=== PATIENT | female | born 1995 | race Caucasian/White ===

== ENCOUNTER 2018-03-30 15:15 | Emergency (ER) | payer OTHER ==
--- NOTE | 2018-03-30 16:30 | ED Physician Documentation ---
PD HPI HEAD INJURY - Stated complaint Stated Complaint: HEAD INJURY - Chief complaint Chief Complaint: Neuro - History obtained from History obtained from: Patient - History of Present Illness Mechanism of head injury: Blow (About 4 days ago she was [place] hit her head on the wall. She did not lose consciousness but crumpled down and since then that has had persistent moderate headaches with dizziness and slight nausea. There is a possibility of , but she refused to do a test here.) Review of Systems Constitutional: reports: Reviewed and negative Throat: reports: Reviewed and negative Cardiac: reports: Reviewed and negative Respiratory: reports: Reviewed and negative PD PAST MEDICAL HISTORY - Past Medical History Past Medical History: No Cardiovascular: None Respiratory: None Neuro: None Endocrine/Autoimmune: None GI: None PHYSICAL CHEMIST: None : None HEENT: None Psych: None Musculoskeletal: None Derm: None - Past Surgical History Past Surgical History: No - Present Medications Home Medications: Ambulatory Orders Medication Instructions Recorded Confirmed No Known Home Medications 03/30/18 03/30/18 - Allergies Allergies/Adverse Reactions: Allergies Allergy/AdvReac Type Severity Reaction Status Date / Time No Known Drug Allergies Allergy Verified 03/30/18 15:26 - Social History Does the pt smoke?: Yes Smoking Status: Current every day smoker Does the pt drink ETOH?: Yes Does the pt have substance abuse?: No - Immunizations Immunizations are current?: Yes - POLST Patient has POLST: No PD ED PE NORMAL - Vitals Vital signs reviewed: Yes - General General: Alert and oriented X 3, No acute distress - HEENT HEENT: PERRL, EOMI - Neck Neck: Supple, no meningeal sign, No bony TTP - Neuro Neuro: Alert and oriented X 3, Normal speech - Psych Psych: Normal mood, Normal affect Results - Vitals Vitals: Vital Signs - 24 hr 03/30/18 03/30/18 15:21 16:18 Temperature 36 C L 36.4 C L Heart Rate 77 78 Respiratory 16 18 Rate Blood Pressure 129/82 H 128/82 H O2 Saturation 98 98 Oxygen O2 Source Room air - Rads (name of study) CT Head Radiology: EMP read contemporaneously (NAD) Departure - Departure Disposition: 01 Home, Self Care Clinical Impression: Concussion Qualifiers: Encounter type: initial encounter Loss of consciousness presence/duration: without LOC Qualified Code(s): S06.0X0A - Concussion without loss of consciousness, initial encounter Condition: Good Record reviewed to determine appropriate education?: Yes Instructions: ED Concussion Comments: Your blood pressure was elevated today on check into the emergency department. This does not mean that you have hypertension, it is a common phenomenon to come to the emergency department and have elevated blood pressure. I recommend that you see your primary care physician within the week to have it rechecked when you are feeling better.
--- NOTE | 2018-03-30 18:04 | CT Report ---
Reason: head inj Procedure Date: 03/30/2018 Accession Number: [id number] / [id number] Procedure: CT - Head W/O CPT Code: FULL RESULT: EXAM: CT HEAD EXAM DATE: 03/30/2018 05:36 PM. CLINICAL HISTORY: Head inj. COMPARISON: None. TECHNIQUE: Multiaxial CT images were obtained from the foramen magnum to the vertex. Reformats: Sagittal and coronal. IV contrast: None. In accordance with CT protocol optimization, one or more of the following dose reduction techniques were utilized for this exam: automated exposure control, adjustment of mA and/or KV based on patient size, or use of iterative reconstructive technique. FINDINGS: Parenchyma: No intraparenchymal hemorrhage. No evidence of mass, midline shift, or CT findings of infarction. Suárez-white differentiation is distinct. Extraaxial Spaces: Normal for age. No subdural or epidural collections identified. Ventricles: Normal in size and position. Sinuses and Orbits: Imaged paranasal sinuses, orbits, and mastoids show no significant abnormality. Bones: No evidence of fracture or calvarial defect. Other: None. IMPRESSION: No acute intracranial CT abnormality. RADIA
[2018-03-30 18:23] VITALS: BP 112/86
== END 2018-03-30 18:24 | disposition home or self-care (01) ==
LOC: ED 15:15
DX: S06.0X0A Concussion without loss of consciousness, initial encounter (principal); Y04.2XXA Assault by strike against or bumped into by another person, initial encounter; Y92.139 Unspecified place military base as the place of occurrence of the external cause; R03.0 Elevated blood-pressure reading, without diagnosis of hypertension; F17.200 Nicotine dependence, unspecified, uncomplicated
CPT/HCPCS: 70450; 99282; 99283

== ENCOUNTER 2018-04-06 14:12 | Emergency (ER) | payer OTHER ==
[2018-04-06 15:16] LABS: BILIRUBIN,URINE NEGATIVE (NEGATIVE); GLUCOSE, URINE (UA) NEGATIVE (NEGATIVE); KETONES,URINE (UA) NEGATIVE (NEGATIVE); LEUKOCYTE ESTERASE, URINE NEGATIVE (NEGATIVE); NITRITE,URINE NEGATIVE (NEGATIVE); OCCULT BLOOD,URINE NEGATIVE (NEGATIVE); PH,URINE 7.5 PH (5.0-7.5); PROTEIN,URINE NEGATIVE (NEGATIVE); UROBILINOGEN,URINE 0.2 (NORMAL) E.U./dL (NORMAL)
[2018-04-06 15:19] LABS: CLARITY,URINE CLEAR (CLEAR); HCG UR QUAL NEGATIVE
--- NOTE | 2018-04-06 15:38 | ED Physician Documentation ---
History of Present Illness - Stated complaint Stated Complaint: FEMALE /PX - Chief complaint Chief Complaint: UTI - History obtained from History obtained from: Patient - History of Present Illness Pain level max: 4 Pain level now: 3 Improved by: Nothing Worsened by: Urinating - Additonal information Additional information: 22-year-old female presents to the emergency department with dysuria, burning and frequency for the past week or so. Treated for a UTI in February but does not feel like it got better. Denies any vaginal bleeding, itching or discharge. She states that she is having abdominal cramping and nausea as well. Wonders if she may be . Review of Systems Constitutional: denies: Fever, Chills Cardiac: denies: Chest pain / pressure Respiratory: denies: Cough GI: reports: Nausea. denies: Vomiting, Diarrhea : reports: Dysuria, Frequency. denies: Now EGA Skin: denies: Rash Musculoskeletal: denies: Neck pain, Back pain Neurologic: denies: Headache PD PAST MEDICAL HISTORY - Past Medical History Cardiovascular: None Respiratory: None Neuro: None Endocrine/Autoimmune: None GI: None MATERIALS COORDINATOR: None : None HEENT: None Psych: None Musculoskeletal: None Derm: None - Past Surgical History Past Surgical History: No - Present Medications Home Medications: Ambulatory Orders Medication Instructions Recorded Confirmed Metronidazole [Flagyl] 500 mg PO BID #20 tablet 04/06/18 04/06/18 Ondansetron Odt [Zofran] 4 mg TL Q6H PRN #10 tablet 04/06/18 04/06/18 - Allergies Allergies/Adverse Reactions: Allergies Allergy/AdvReac Type Severity Reaction Status Date / Time No Known Drug Allergies Allergy Verified 04/06/18 21:48 - Social History Does the pt smoke?: Yes Smoking Status: Former smoker Does the pt drink ETOH?: Yes Does the pt have substance abuse?: No - Immunizations Immunizations are current?: Yes - POLST Patient has POLST: No PD ED PE NORMAL - Vitals Vital signs reviewed: Yes - General General: Alert and oriented X 3, No acute distress - HEENT HEENT: Moist mucous membranes - Neck Neck: Supple, no meningeal sign - Cardiac Cardiac: RRR, Strong equal pulses - Respiratory Respiratory: No respiratory distress, Clear bilaterally - Abdomen Abdomen: Soft, Non tender, Non distended - Female Female : University Tutor present (Ifeoma Paez RN), Other (Vaginal wall irritation with white thick discharge. Normal-appearing cervix. No cervical motion tenderness.) - Back Back: No CVA TTP, No spinal TTP - Derm Derm: Warm and dry, No rash - Extremities Extremities: No edema, No calf tenderness / cord - Neuro Neuro: Alert and oriented X 3 Results - Vitals Vitals: Vital Signs - 24 hr 04/06/18 04/06/18 14:16 17:29 Temperature 36.7 C Heart Rate 91 79 Respiratory 16 16 Rate Blood Pressure 130/82 H 112/66 O2 Saturation 100 100 Oxygen O2 Source Room air - Labs Labs: Microbiology 04/06/18 16:10 DREW Preparation - Final Other - Vaginal 04/06/18 16:10 Wet Prep - Final Vaginal Laboratory Tests 04/06/18 04/06/18 14:25 14:25 Urine Color YELLOW Urine Clarity CLEAR Urine pH 7.5 Ur Specific [place] 1.010 1.010 Urine Protein NEGATIVE Urine Glucose (UA) NEGATIVE Urine Ketones NEGATIVE Urine Occult Blood NEGATIVE Urine Nitrite NEGATIVE Urine Bilirubin NEGATIVE Urine Urobilinogen 0.2 (NORMAL) Ur Leukocyte Esterase NEGATIVE Ur Microscopic Review NOT INDICATED Urine Culture Comments NOT INDICATED Urine HCG, Qual NEGATIVE PD MEDICAL DECISION MAKING - ED course Complexity details: reviewed results, re-evaluated patient, considered differential, d/w patient ED course: 22-year-old female with what appears to be bacterial vaginitis on exam, will place on metronidazole for home and follow-up with her doctor. No evidence of UTI. No evidence of PID. Gonorrhea and Chlamydia testing were sent. Patient counseled regarding signs and symptoms for which I believe and urgent re- evaluation would be necessary. Patient with good understanding of and agreement to plan and is comfortable going home at this time This document was made in part using voice recognition software. While efforts are made to proofread this document, sound alike and grammatical errors may occur. She states that she has been with one partner for the past several months, no history of STDs Departure - Departure Disposition: Home, Self Care Clinical Impression: Bacterial vaginitis Condition: Good Instructions: ED Vaginosis Bacterial Follow-Up: CHARMAINE SALAZAR MD [Primary Care Provider] - Within 1 week Prescriptions: Metronidazole [Flagyl] 500 mg PO BID #20 tablet Ondansetron Odt [Zofran] 4 mg TL Q6H PRN #10 tablet PRN Reason: Nausea / Vomiting Comments: The cause of your symptoms is unclear today but may be related to bacterial vaginitis. Take all medications until gone. Return if you worsen. Forms: Activity restrictions Discharge Date/Time: 04/06/18 17:37
[2018-04-06] MEDS ORDERED: ONDANSETRON ODT 4 MG TABLET TL STA (17:20)
[2018-04-06] MEDS ORDERED: metroNIDAZOLE 250 MG TABLET PO STA (17:20)
[2018-04-06 17:31] VITALS: BP 112/66
== END 2018-04-06 17:37 | disposition home or self-care (01) ==
LOC: ED 14:12
DX: N76.0 Acute vaginitis (principal); B96.89 Other specified bacterial agents as the cause of diseases classified elsewhere; Z87.891 Personal history of nicotine dependence
CPT/HCPCS: 81003; 81025; 87210; 87220; 87491; 87591; 99283; A9270; Q0162; 81001; 87086

== ENCOUNTER 2018-04-06 21:40 | Emergency (ER) | payer OTHER ==
--- NOTE | 2018-04-06 22:02 | ED Physician Documentation ---
PD HPI MHE - Stated complaint Stated Complaint: SI - Chief complaint Chief Complaint: MHE - History obtained from History obtained from: Patient - History of Present Illness Primary symptom: Suicidal ideation, Depression (She has been feeling depressed and this is a somewhat long-term issue. 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 She likes her job and is hoping she does well with it. She does have a longer history of depression in the past. 1 of her friends asked if she was suicidal and the patient states she does have vague ideation of it at times and so answered yes. She did not think much of it and was at home watching a movie when her friend and came in and said they were going to escort her here for evaluation. She had not had any alcohol use. She denies any drug use.). No: Suicide attempt Timing - onset: Chronic Contributing factors: Substance abuse - ETOH (She states she had had excess alcohol use in the past but as given up alcohol for the last few months. She is in a support group at the [employer].) Similar symptoms before: Diagnosis (She does have a past history of depression she states she had a mild overdose of medication at age 14. She has not had any suicidal plans or attempts subsequently. She had at counseling back at that time but none recently.) Recently seen: Emergency Dept Review of Systems Ten Systems: 10 systems reviewed and negative PD PAST MEDICAL HISTORY - Past Medical History Cardiovascular: None Respiratory: None Neuro: None Endocrine/Autoimmune: None GI: None ORAL SURGERY PHYSICIAN: None : None HEENT: None Psych: Other Musculoskeletal: None Derm: None Other Past Medical History: Overdose when 14 years old - Past Surgical History Past Surgical History: No - Present Medications Home Medications: Ambulatory Orders Medication Instructions Recorded Confirmed Metronidazole [Flagyl] 500 mg PO BID #20 tablet 04/06/18 04/06/18 Ondansetron Odt [Zofran] 4 mg TL Q6H PRN #10 tablet 04/06/18 04/06/18 - Allergies Allergies/Adverse Reactions: Allergies Allergy/AdvReac Type Severity Reaction Status Date / Time No Known Drug Allergies Allergy Verified 04/06/18 21:48 - Social History Does the pt smoke?: Yes Smoking Status: Current every day smoker Does the pt drink ETOH?: Yes Does the pt have substance abuse?: No - Immunizations Immunizations are current?: Yes - POLST Patient has POLST: No PD ED PE NORMAL - Vitals Vital signs reviewed: Yes - General General: Alert and oriented X 3, No acute distress, Well developed/nourished, Other (She is pleasant, talkative and cooperative.) - Cardiac Cardiac: RRR, No murmur - Respiratory Respiratory: Clear bilaterally - Abdomen Abdomen: Soft, Non tender - Derm Derm: Normal color, Warm and dry - Neuro Neuro: Alert and oriented X 3, No motor deficit, Normal speech - Psych Psych: Normal mood, Normal affect Results - Vitals Vitals: Vital Signs - 24 hr 04/06/18 04/06/18 21:44 22:57 Temperature 36.0 C L 36.5 C Heart Rate 92 86 Respiratory 18 14 Rate Blood Pressure 134/91 H 123/76 O2 Saturation 100 100 Oxygen O2 Source Room air - Labs Labs: Laboratory Tests 04/06/18 04/06/18 04/06/18 22:16 22:16 22:22 WBC 7.8 RBC 4.66 Hgb 14.5 Hct 41.8 MCV 89.7 MCH 31.2 H MCHC 34.8 RDW 12.4 Plt Count 291 MPV 8.0 Neut # (Auto) 4.4 Lymph # (Auto) 2.6 [place] # (Auto) 0.7 Eos # (Auto) 0.0 Baso # (Auto) 0.0 Absolute Nucleated RBC 0.00 Nucleated RBC % 0.0 Sodium Potassium Chloride Carbon Dioxide Anion Gap BUN Creatinine Estimated GFR (MDRD) Glucose Calcium Ur Specific [place] 1.015 Urine HCG, Qual NEGATIVE Urine Opiates Screen NEGATIVE Ur Oxycodone Screen NEGATIVE Urine Methadone Screen NEGATIVE Ur Propoxyphene Screen NEGATIVE Ur Barbiturates Screen NEGATIVE Ur Tricyclics Screen NEGATIVE Ur Phencyclidine Scrn NEGATIVE Ur Amphetamine Screen NEGATIVE U Methamphetamines Scrn NEGATIVE U Benzodiazepines Scrn NEGATIVE Urine Cocaine Screen NEGATIVE U Cannabinoids Screen NEGATIVE Ethyl Alcohol 04/06/18 22:22 WBC RBC Hgb Hct MCV MCH MCHC RDW Plt Count MPV Neut # (Auto) Lymph # (Auto) [place] # (Auto) Eos # (Auto) Baso # (Auto) Absolute Nucleated RBC Nucleated RBC % Sodium 138 Potassium 3.6 Chloride 103 Carbon Dioxide 27 Anion Gap 8.0 BUN 13 Creatinine 0.7 Estimated GFR (MDRD) 106 Glucose 98 Calcium 9.4 Ur Specific [place] Urine HCG, Qual Urine Opiates Screen Ur Oxycodone Screen Urine Methadone Screen Ur Propoxyphene Screen Ur Barbiturates Screen Ur Tricyclics Screen Ur Phencyclidine Scrn Ur Amphetamine Screen U Methamphetamines Scrn U Benzodiazepines Scrn Urine Cocaine Screen U Cannabinoids Screen Ethyl Alcohol < 5.0 PD MEDICAL DECISION MAKING - ED course Complexity details: considered differential (She denies any current suicidal plan. She states her thoughts have been out of passive or vague suicidal ideation in the past and so I just answered honestly when asked earlier. She does not have any intention for self-harm. 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 She is willing to start counseling and would like to. I do not see any reason for holding her at this point. 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 and they will be staying with her overnight and help her start with counseling tomorrow.), d/w patient Departure - Departure Disposition: 01 Home, Self Care Clinical Impression: Passive suicidal ideations Adjustment disorder Qualifiers: Adjustment disorder type: with depressed mood Qualified Code(s): F43.21 - Adjustment disorder with depressed mood Condition: Stable Record reviewed to determine appropriate education?: Yes Instructions: ED Adjustment Disorder, ED Depression Follow-Up: BERTHA Moise [Provider Group] Comments: You have said you do not feel that you would be hurting herself and are forward looking with your career. You have promised not to hurt herself and to follow- up with counseling in the next couple of days. I agree that you do not seem at risk of self-harm and it seems reasonable for you to go home. Your command will likely want to have people check on you often and to help you with getting connected with counseling services in the next day or 2. They are looking out for your best interest with that. Regular activity is good and routine is good so regular diet and exercise and work. Follow-up with counseling in the next couple of days. Discharge Date/Time: 04/06/18 22:58
[2018-04-06 22:23] LABS: MUDS CUTOFF CONCENTRATIONS CUTOFF CONC BELOW:
[2018-04-06 22:28] LABS: HCG UR QUAL NEGATIVE
[2018-04-06 22:28] LABS: BASOPHILS % (AUTO) 0.3 %; EOSINOPHILS % (AUTO) 0.6 %; HGB - HEMOGLOBIN 14.5 g/dL (12.0-16.0); LYMPHOCYTES # (AUTO) 2.6 10^3/uL (1.5-3.5); MEAN CORPUSCULAR HEMOGLOBIN 31.2 pg (27.0-31.0); MEAN CORPUSCULAR HGB CONC 34.8 g/dL (32.0-36.0); MEAN CORPUSCULAR VOLUME 89.7 fL (81.0-99.0); MONOCYTES # (AUTO) 0.7 10^3/uL (0.0-1.0); MONOCYTES % (AUTO) 9.5 %; NEUTROPHILS # (AUTO) 4.4 10^3/uL (1.5-6.6); NEUTROPHILS % (AUTO) 56.6 %; PLT - PLATELET COUNT 291 10^3/uL (130-450); RED BLOOD COUNT 4.66 10^6/uL (4.20-5.40); RED CELL DISTRIBUTION WIDTH 12.4 % (12.0-15.0); WHITE BLOOD COUNT 7.8 x10^3/uL (4.8-10.8)
[2018-04-06 22:35] LABS: AMPHETAMINE SCREEN,URINE NEGATIVE (NEGATIVE); BENZODIAZEPINES SCREEN, URINE NEGATIVE (NEGATIVE); COCAINE SCREEN URINE NEGATIVE (NEGATIVE); METHADONE SCREEN, URINE NEGATIVE (NEGATIVE); METHAMPHETAMINES SCREEN, URINE NEGATIVE (NEGATIVE); OPIATE SCREEN, URINE NEGATIVE (NEGATIVE); OXYCODONE SCREEN, URINE NEGATIVE (NEGATIVE); PROPOXYPHENE SCREEN, URINE NEGATIVE (NEGATIVE); TRICYCLIC ANTIDEPRESSANT,URINE NEGATIVE (NEGATIVE)
[2018-04-06 22:35] LABS: BUN - BLOOD UREA NITROGEN 13 mg/dL (6-20); CALCIUM 9.4 mg/dL (8.5-10.3); CARBON DIOXIDE - CO2 27 mmol/L (21-32); CHLORIDE 103 mmol/L (101-111); CREATININE 0.7 mg/dL (0.4-1.0); GFR - MDRD 106 (>89); GLUCOSE 98 mg/dL (70-100); SODIUM 138 mmol/L (135-145)
[2018-04-06 22:58] VITALS: BP 123/76
== END 2018-04-06 22:58 | disposition home or self-care (01) ==
LOC: ED 21:40
DX: F43.21 Adjustment disorder with depressed mood (principal); R45.851 Suicidal ideations; F17.200 Nicotine dependence, unspecified, uncomplicated; N76.0 Acute vaginitis; B96.89 Other specified bacterial agents as the cause of diseases classified elsewhere
CPT/HCPCS: 36415; 80048; 80306; 80320; 81003; 81025; 85025; 87210; 87220; 87491; 87591; 99283; 99284; A9270; Q0162

== ENCOUNTER 2018-08-24 02:00 | Emergency (ER) | payer OTHER ==
[2018-08-24 02:37] LABS: BILIRUBIN,URINE NEGATIVE (NEGATIVE); GLUCOSE, URINE (UA) NEGATIVE (NEGATIVE); KETONES,URINE (UA) NEGATIVE (NEGATIVE); LEUKOCYTE ESTERASE, URINE TRACE (NEGATIVE); NITRITE,URINE POSITIVE (NEGATIVE); OCCULT BLOOD,URINE SMALL (NEGATIVE); PROTEIN,URINE NEGATIVE (NEGATIVE); UROBILINOGEN,URINE 0.2 (NORMAL) E.U./dL (NORMAL)
[2018-08-24 02:39] LABS: CLARITY,URINE SL. CLOUDY (CLEAR)
[2018-08-24 02:40] LABS: HCG UR QUAL NEGATIVE
[2018-08-24 02:49] LABS: BACTERIA,URINE Moderate /HPF (None Seen); RBC,URINE 0-5 /HPF (0-5); SQUAMOUS EPITHELIAL CELL,UR FEW Squamous (<= Few)
[2018-08-24] MEDS ORDERED: AZITHROMYCIN 250 MG TABLET PO STA (05:30)
[2018-08-24] MEDS ORDERED: LIDOCAINE 1% 2 ML VIAL MC ONE (05:31)
[2018-08-24] MEDS ORDERED: cefTRIAXone 250 MG VIAL IM STA (05:31)
--- NOTE | 2018-08-24 05:37 | ED Physician Documentation ---
PD HPI FEMALE - Stated complaint Stated Complaint: ABD PX/FEM /POSS EXPOSURE - Chief complaint Chief Complaint: General - History obtained from History obtained from: Patient - History of Present Illness Timing - onset: How many weeks ago (3) Timing - duration: Weeks (3) Timing - details: Gradual onset, Still present Associated symptoms: Pelvic pain, Other (discharge) Contributing factors: Sexually active, Exposed to STD Similar symptoms before: Diagnosis (STD) Recently seen: Not recently seen - Additional information Additional information: Previously well 22-year-old female who has had a foul-smelling vaginal discharge and pelvic pain for the past 3 weeks. She is come to the emergency department now seeking treatment. Review of Systems Constitutional: denies: Fever Eyes: denies: Decreased vision Ears: denies: Ear pain Nose: denies: Congestion Throat: denies: Sore throat Cardiac: denies: Chest pain / pressure, Palpitations Respiratory: denies: Dyspnea, Cough GI: reports: Abdominal Pain, Nausea. denies: Vomiting : reports: Discharge. denies: Dysuria, Frequency Skin: denies: Rash Musculoskeletal: denies: Neck pain, Back pain, Extremity pain PD PAST MEDICAL HISTORY - Past Medical History Cardiovascular: None Respiratory: None Neuro: None Endocrine/Autoimmune: None GI: None BEHAVIORAL HEALTH DIRECTOR: None : None HEENT: None Psych: Other Musculoskeletal: None Derm: None - Past Surgical History Past Surgical History: No - Present Medications Home Medications: Ambulatory Orders Medication Instructions Recorded Confirmed Metronidazole [Flagyl] 500 mg PO BID #20 tablet 04/06/18 04/06/18 Ondansetron Odt [Zofran] 4 mg TL Q6H PRN #10 tablet 04/06/18 04/06/18 - Allergies Allergies/Adverse Reactions: Allergies Allergy/AdvReac Type Severity Reaction Status Date / Time No Known Drug Allergies Allergy Verified 04/06/18 21:48 - Social History Does the pt smoke?: Yes Smoking Status: Current every day smoker Does the pt drink ETOH?: Yes Does the pt have substance abuse?: No - Immunizations Immunizations are current?: Yes - POLST Patient has POLST: No PD ED PE NORMAL - Vitals Vital signs reviewed: Yes (hypertensive ) - General General: Alert and oriented X 3, No acute distress, Well developed/nourished - HEENT HEENT: Atraumatic, PERRL, EOMI - Neck Neck: Supple, no meningeal sign - Respiratory Respiratory: No respiratory distress - Female Female : Hat Cleaner present (julia), Other (yellow white discharge is present with cervical mucopus. The bimanual exam is postitive for cervical motion tenderness. ) - Derm Derm: Normal color, Warm and dry, No rash - Extremities Extremities: No deformity, No edema - Neuro Neuro: Alert and oriented X 3, tire layer 2-12 intact, No motor deficit, No sensory deficit, Normal speech Eye Opening: Spontaneous Verbal: Oriented - Psych Psych: Normal mood, Normal affect Results - Vitals Vitals: Vital Signs - 24 hr 08/24/18 02:06 Temperature 36.6 C Heart Rate 90 Respiratory 18 Rate Blood Pressure 133/81 H O2 Saturation 99 Oxygen O2 Source Room air - Labs Labs: Laboratory Tests 08/24/18 00:23 Urine Color YELLOW Urine Clarity SL. CLOUDY Urine pH 6.0 Ur Specific [place] 1.020 Urine Protein NEGATIVE Urine Glucose (UA) NEGATIVE Urine Ketones NEGATIVE Urine Occult Blood SMALL H Urine Nitrite POSITIVE H Urine Bilirubin NEGATIVE Urine Urobilinogen 0.2 (NORMAL) Ur Leukocyte Esterase TRACE H Urine RBC 0-5 Urine WBC 0-3 Ur Squamous Epith Cells FEW Squamous Urine Bacteria Moderate H Ur Microscopic Review INDICATED Urine Culture Comments INDICATED Urine HCG, Qual NEGATIVE PD MEDICAL DECISION MAKING - ED course Complexity details: considered differential, d/w patient ED course: 22-year-old female with exposure to STD appears to have discharge and cervical motion tenderness consistent with STD and she is treated with Rocephin and Zithromax. Departure - Departure Disposition: 01 Home, Self Care Clinical Impression: STD (female) Condition: Stable Instructions: ED VD Cervicitis Treated Follow-Up: CHARMAINE SALAZAR MD [Primary Care Provider] - Forms: Activity restrictions
[2018-08-24 06:11] VITALS: BP 122/84
== END 2018-08-24 06:16 | disposition home or self-care (01) ==
LOC: ED 02:00
DX: A64 Unspecified sexually transmitted disease (principal); F17.200 Nicotine dependence, unspecified, uncomplicated
CPT/HCPCS: 81001; 81025; 87086; 87181; 96372; 99282; 99283; A9270; 81003

== ENCOUNTER 2018-09-13 13:19 | Emergency (ER) | payer OTHER ==
[2018-09-13 14:25] LABS: BILIRUBIN,URINE NEGATIVE (NEGATIVE); GLUCOSE, URINE (UA) NEGATIVE (NEGATIVE); KETONES,URINE (UA) NEGATIVE (NEGATIVE); LEUKOCYTE ESTERASE, URINE NEGATIVE (NEGATIVE); NITRITE,URINE NEGATIVE (NEGATIVE); OCCULT BLOOD,URINE SMALL (NEGATIVE); PROTEIN,URINE NEGATIVE (NEGATIVE); UROBILINOGEN,URINE 0.2 (NORMAL) E.U./dL (NORMAL)
[2018-09-13 14:27] LABS: CLARITY,URINE HAZY (CLEAR); HCG UR QUAL NEGATIVE
[2018-09-13 14:43] LABS: BACTERIA,URINE Few /HPF (None Seen); SQUAMOUS EPITHELIAL CELL,UR MANY Squamous (<= Few)
[2018-09-13] MEDS ORDERED: ACETAMINOPHEN 325 MG TABLET PO STA (15:32)
[2018-09-13] MEDS ORDERED: metroNIDAZOLE 250 MG TABLET PO STA (15:32)
--- NOTE | 2018-09-13 15:36 | ED Physician Documentation ---
PD HPI FEMALE - Stated complaint Stated Complaint: FEMALE - Chief complaint Chief Complaint: General - History obtained from History obtained from: Patient - History of Present Illness Timing - onset: How many days ago (few days of worsening vaginal burning feeling and pain, with pelvic cramping.) Timing - duration: Days Timing - details: Gradual onset, Waxing and waning Associated symptoms: Pelvic pain, Vaginal discharge (mild), Dysuria. No: Fever, Vaginal bleeding, Genital sore/lesion, Urinary frequency Contributing factors: Sexually active. No: Exposed to STD (has recent new sexual partner, but not suspicious for STDs. Had same symptoms for past month and seen about 3 weeks ago with pelvic exam appearance like chlamydia/etd. So was given IM Rocephin and PO Zithromax 1 g. Patient says symptoms improved but not gone, and then back again the past few days and worse.) Recently seen: Emergency Dept Review of Systems Constitutional: denies: Fever, Chills, Myalgias, Fatigue Nose: denies: Rhinorrhea / runny nose, Congestion Throat: denies: Sore throat Respiratory: denies: Cough GI: reports: Abdominal Pain. denies: Nausea, Vomiting, Diarrhea : reports: Dysuria, Discharge. 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 : None HEENT: None Psych: None Musculoskeletal: None Derm: None - Past Surgical History Past Surgical History: No - Present Medications Home Medications: Ambulatory Orders Medication Instructions Recorded Confirmed Metronidazole [Flagyl] 500 mg PO BID #20 tablet 04/06/18 04/06/18 Ondansetron Odt [Zofran] 4 mg TL Q6H PRN #10 tablet 04/06/18 04/06/18 Fluconazole [Diflucan] 150 mg PO ONCE #3 tablet 09/13/18 Metronidazole [Flagyl] 500 mg PO BID #14 tablet 09/13/18 Naproxen 375 mg PO BID #20 tablet 09/13/18 Tramadol HCl 50 mg PO Q6H PRN #15 tablet 09/13/18 - Allergies Allergies/Adverse Reactions: Allergies Allergy/AdvReac Type Severity Reaction Status Date / Time No Known Drug Allergies Allergy Verified 09/13/18 13:34 - Social History Does the pt smoke?: Yes Smoking Status: Current some day smoker Does the pt drink ETOH?: Yes ETOH Use: Wine, Beer, Liquor Does the pt have substance abuse?: No - Immunizations Immunizations are current?: Yes - POLST Patient has POLST: No PD ED PE NORMAL - Vitals Vital signs reviewed: Yes - General General: Alert and oriented X 3, No acute distress, Well developed/nourished - HEENT HEENT: Pharynx benign - Neck Neck: Supple, no meningeal sign, No adenopathy - Cardiac Cardiac: RRR, No murmur - Respiratory Respiratory: Clear bilaterally - Abdomen Abdomen: Normal bowel sounds, Soft, Non distended, No organomegaly, Other - Female Female : Loose Hand Packer present, Other (external normal. Inner labia with some re dness and tenderness of tissue. Introitus with tenderness and redness. The vault with white milky discharge to rather clumpy white. ) - Rectal Rectal: Deferred - Back Back: No CVA TTP - Derm Derm: Normal color, Warm and dry Results - Vitals Vitals: Vital Signs - 24 hr 09/13/18 09/13/18 13:32 15:53 Temperature 37 C Heart Rate 90 75 Respiratory 18 18 Rate Blood Pressure 110/74 124/80 O2 Saturation 100 100 Oxygen O2 Source Room air - Labs Labs: Microbiology 09/13/18 15:15 Wet Prep - Final Vaginal Laboratory Tests 09/13/18 09/13/18 14:15 15:25 Urine Color YELLOW Urine Clarity HAZY Urine pH 6.0 Ur Specific [place] 1.020 Urine Protein NEGATIVE Urine Glucose (UA) NEGATIVE Urine Ketones NEGATIVE Urine Occult Blood SMALL H Urine Nitrite NEGATIVE Urine Bilirubin NEGATIVE Urine Urobilinogen 0.2 (NORMAL) Ur Leukocyte Esterase NEGATIVE Urine RBC 6-10 H Urine WBC 4-5 Ur Squamous Epith Cells MANY Squamous H Urine Bacteria Few Ur Microscopic Review INDICATED Urine Culture Comments NOT INDICATED Urine HCG, Qual NEGATIVE Chlam trachomat DNA PCR NEGATIVE N.gonorrhoeae DNA (PCR) NEGATIVE T. vaginalis (PCR) NEGATIVE PD MEDICAL DECISION MAKING - ED course Complexity details: reviewed old records, reviewed results (recent Rx for STDs with rocphine and zithroamx. Having symptoms again and did not really fully cleared. Will treat for BV/yeast, c/w the appearance. Culture results will help guide. I could not find culture/STD screen result from prior ED visit.), considered differential, d/w patient ED course: BV and STD screen results return after discharge (takes hours for results) - showing negative results, but the wet prep shows clue cells, and the exam was very c/w BV, so will count the wet prep as the true positive and BV screen as false negative, based on clinical correlation. Departure - Departure Disposition: 01 Home, Self Care Clinical Impression: Vaginal pain Vaginitis Qualifiers: Chronicity: acute Qualified Code(s): N76.0 - Acute vaginitis Condition: Stable Record reviewed to determine appropriate education?: Yes Instructions: ED Vaginosis Bacterial, ED Vaginal Infec Fungal Karina Follow-Up: CHARMAINE SALAZAR MD [Primary Care Provider] - Prescriptions: Fluconazole [Diflucan] 150 mg PO ONCE #3 tablet Metronidazole [Flagyl] 500 mg PO BID #14 tablet Naproxen 375 mg PO BID #20 tablet Tramadol HCl 50 mg PO Q6H PRN #15 tablet PRN Reason: Pain Comments: Stay well-hydrated. The appearance on pelvic exam is likely to be a mix of bacterial and yeast vaginitis. The culture test will result in a day or so and tell us if there is more to it. We will call you if the treatment needs to be amended. At this point would treated with an antifungal and antibiotic as directed. You can use naproxen anti-inflammatory twice daily for the week. Add Tylenol or tramadol if needed for pains. Recheck if not improved over the next several days to week. Forms: Activity restrictions Discharge Date/Time: 09/13/18 15:54
[2018-09-13] MEDS: IBUPROFEN 600 MG TABLET PO STA (15:48)
[2018-09-13 15:53] VITALS: BP 124/80
[2018-09-13 22:10] LABS: TRICHOMONAS VAGINALIS DNA NEGATIVE (NEGATIVE)
[2018-09-13 23:50] LABS: CANDIDA GROUP DNA NEGATIVE (NEGATIVE); CANDIDA KRUSEI DNA NEGATIVE (NEGATIVE); TRICHOMONAS VAGINALIS DNA NEGATIVE (NEGATIVE)
== END 2018-09-13 15:54 | disposition home or self-care (01) ==
LOC: ED 13:19
DX: N76.0 Acute vaginitis (principal); F17.200 Nicotine dependence, unspecified, uncomplicated
CPT/HCPCS: 81001; 81025; 87210; 87481; 87491; 87591; 87661; 87801; 99283; 99284; A9270; 81003; 87086

== ENCOUNTER 2018-11-08 14:25 | Emergency (ER) | payer OTHER ==
--- NOTE | 2018-11-08 15:00 | ED Physician Documentation ---
PD HPI FEMALE - Stated complaint Stated Complaint: FEM -7 WKS PG - Chief complaint Chief Complaint: Abd Pain - History obtained from History obtained from: Patient - History of Present Illness Timing - onset: How many weeks ago (has had some lower abd cramping for 3 weeks. Had home test positive and then confirmed test at [facility]. Having increased cramping the past couple days. No vaginal bleeding.) Timing - duration: Weeks Timing - details: Gradual onset, Waxing and waning Associated symptoms: Dysuria. 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 denies: Vomiting, Diarrhea : reports: Dysuria. 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 : None HEENT: None Psych: None Musculoskeletal: None Derm: None - Past Surgical History Past Surgical History: No - Present Medications Home Medications: Ambulatory Orders Medication Instructions Recorded Confirmed Metronidazole [Flagyl] 500 mg PO BID #20 tablet 04/06/18 04/06/18 Ondansetron Odt [Zofran] 4 mg TL Q6H PRN #10 tablet 04/06/18 04/06/18 Fluconazole [Diflucan] 150 mg PO ONCE #3 tablet 09/13/18 Metronidazole [Flagyl] 500 mg PO BID #14 tablet 09/13/18 Naproxen 375 mg PO BID #20 tablet 09/13/18 Tramadol HCl 50 mg PO Q6H PRN #15 tablet 09/13/18 Cephalexin [Keflex] 500 mg PO TID #20 capsule 11/08/18 - Allergies Allergies/Adverse Reactions: Allergies Allergy/AdvReac Type Severity Reaction Status Date / Time No Known Drug Allergies Allergy Verified 09/13/18 13:34 - Social History Does the pt smoke?: Yes Smoking Status: Current some day smoker Does the pt drink ETOH?: Yes Does the pt have substance abuse?: No - Immunizations Immunizations are current?: Yes - POLST Patient has POLST: No PD ED PE NORMAL - Vitals Vital signs reviewed: Yes - General General: Alert and oriented X 3, No acute distress, Well developed/nourished - Neck Neck: Supple, no meningeal sign, No adenopathy - Cardiac Cardiac: RRR, No murmur - Respiratory Respiratory: Clear bilaterally - Abdomen Abdomen: Normal bowel sounds, Soft, Non tender, Non distended, No organomegaly - Female Female : Deferred - Rectal Rectal: Deferred - Back Back: No CVA TTP - Derm Derm: Normal color, Warm and dry Results - Vitals Vitals: Vital Signs - 24 hr 11/08/18 11/08/18 14:29 17:52 Temperature 36.7 C 36.6 C Heart Rate 92 86 Respiratory 16 18 Rate Blood Pressure 110/64 111/58 L O2 Saturation 100 100 Oxygen O2 Source Room air - Labs Labs: Laboratory Tests 11/08/18 11/08/18 14:50 15:44 HCG, Quant 43315.00 Urine Color YELLOW Urine Clarity CLEAR Urine pH 6.0 Ur Specific [place] 1.010 Urine Protein NEGATIVE Urine Glucose (UA) NEGATIVE Urine Ketones NEGATIVE Urine Occult Blood TRACE-INTA Urine Nitrite POSITIVE H Urine Bilirubin NEGATIVE Urine Urobilinogen 0.2 (NORMAL) Ur Leukocyte Esterase TRACE H Urine RBC 0-5 Urine WBC 6-10 H Ur Squamous Epith Cells RARE Squamous Urine Bacteria Many H Ur Microscopic Review INDICATED Urine Culture Comments INDICATED - Rads (name of study) OB U/S Radiology: Prelim report reviewed (normal IUP. FHR slightly slow. Ovaries normal. ), See rad report PD MEDICAL DECISION MAKING - ED course Complexity details: reviewed results (normal IUP with FHR slightly slow. ), considered differential, d/w patient Departure - Departure Disposition: 01 Home, Self Care Clinical Impression: Pelvic cramping in antepartum period UTI (urinary tract infection) Qualifiers: Urinary tract infection type: acute cystitis Hematuria presence: without hematuria Qualified Code(s): N30.00 - Acute cystitis without hematuria Qualifiers: Weeks of gestation: less than 8 weeks Qualified Code(s): Z3A.01 - Less than 8 weeks gestation of Condition: Stable Record reviewed to determine appropriate education?: Yes Instructions: ED UTI Cystitis Female Follow-Up: CHARMAINE SALAZAR MD [Primary Care Provider] - Prescriptions: Cephalexin [Keflex] 500 mg PO TID #20 capsule Comments: You do have a bladder infection and this may account for a lot of your symptoms. Use cephalexin 3 times a day for a week as directed. Drink lots of fluids. Tylenol as needed for pains or cramps. This early in , you can still use ibuprofen to 3 times a day if needed as well. You do have early in the correct position in the uterus with visible heart beat. No problems seen in the ovaries. The ultrasound showed dates to be 6 weeks at this time. Follow-up with your primary care in the clinic for recheck in the next several days. Stay well-hydrated. Discharge Date/Time: 11/08/18 17:52
[2018-11-08 15:10] LABS: BILIRUBIN,URINE NEGATIVE (NEGATIVE); GLUCOSE, URINE (UA) NEGATIVE (NEGATIVE); KETONES,URINE (UA) NEGATIVE (NEGATIVE); LEUKOCYTE ESTERASE, URINE TRACE (NEGATIVE); NITRITE,URINE POSITIVE (NEGATIVE); OCCULT BLOOD,URINE TRACE-INTA (NEGATIVE); PROTEIN,URINE NEGATIVE (NEGATIVE); UROBILINOGEN,URINE 0.2 (NORMAL) E.U./dL (NORMAL)
[2018-11-08 15:22] LABS: BACTERIA,URINE Many /HPF (None Seen); CLARITY,URINE CLEAR (CLEAR); RBC,URINE 0-5 /HPF (0-5); SQUAMOUS EPITHELIAL CELL,UR RARE Squamous (<= Few)
[2018-11-08] MEDS ORDERED: cephALEXin 250 MG CAPSULE PO STA (15:33)
--- NOTE | 2018-11-08 17:38 | Ultrasound Report ---
Reason: lower abd cramping; 7 wks EGA Procedure Date: 11/08/2018 Accession Number: [id number] / [id number] Procedure: US - OB First Trimester CPT Code: FULL RESULT: EXAM: FIRST TRIMESTER OBSTETRIC ULTRASOUND (Less than 11 weeks) EXAM DATE: 11/08/2018 05:25 PM. CLINICAL HISTORY: Lower abdominal cramping; 7 wks EGA. COMPARISONS: None. TECHNIQUE: Transabdominal and transvaginal ultrasound examination with static image documentation. CLINICAL DATES: EGA 6 weeks 3 days with TARIK 07/01/2019 based on LMP. ASSESSMENT: Gestational Sac: Single intrauterine. Mean gestational sac diameter: 14 mm = 6 weeks 2 days. Embryo: CRL (crown-rump length) 4 mm = 6 weeks 0 days. Cardiac activity: 102 beats per minute. Yolk sac: 3 mm. Other: There is a perigestational fluid collection that measures 2.0 x 1.8 cm. MATERNAL STRUCTURES: Uterus: Retroverted. Unremarkable. Cervix: Closed. Right Ovary/Adnexa: The ovary measures 2.7 x 1.8 x 1.9 cm, volume 5 cc. Unremarkable. Left Ovary/Adnexa: The ovary measures 4.1 x 1.5 x 1.9 cm, volume 6 cc. There is a corpus luteum. Free Fluid: None. Other: None. IMPRESSION: Single intrauterine at EGA 6 weeks 0 days with TARIK 07/04/2019 based on crown-rump length. Low heart rate may be due to early gestational age. There is a perigestational collection. RADIA
[2018-11-08 17:53] VITALS: BP 111/58
== END 2018-11-08 17:52 | disposition home or self-care (01) ==
LOC: ED 14:25
DX: O99.89 Other specified diseases and conditions complicating pregnancy, childbirth and the puerperium (principal); O23.91 Unspecified genitourinary tract infection in pregnancy, first trimester; R10.2 Pelvic and perineal pain; F17.200 Nicotine dependence, unspecified, uncomplicated; Z3A.01 Less than 8 weeks gestation of pregnancy
CPT/HCPCS: 76801; 76817; 81001; 84702; 87086; 87181; 99284; A9270; 81003; 87661; 87801

== ENCOUNTER 2019-05-05 08:26 | Outpatient (CLI) | payer OTHER ==
[2019-05-05 08:47] VITALS: BP 111/77
[2019-05-05 09:40] LABS: RUPTURE OF MEMBRANES PLUS NEGATIVE (NEGATIVE)
--- NOTE | 2019-05-20 12:51 | PROVIDER PROGRESS NOTE ---
- HPI Chief Complaint: Leakage of vaginal fluid Current : Current EDU 07/01/19 Gestation 31 Weeks and 6 Days 1 Para 0 Vital Signs Temperature 36.9 C 05/05/19 08:45 Heart Rate 112 H 05/05/19 08:45 Respiratory Rate 18 05/05/19 08:45 Blood Pressure 111/77 05/05/19 08:45 O2 Saturation 100 05/05/19 08:45 Temperature 36.9 C 05/05/19 08:45 Heart Rate 112 H 05/05/19 08:45 Respiratory Rate 18 05/05/19 08:45 Blood Pressure 111/77 05/05/19 08:45 O2 Saturation 100 05/05/19 08:45 - Exam Negative Pool, nitrazine, fern. - Procedures Diagnosis/Indication for NST: Other (RO ROM) NST Procedure: NST Procedure Start Date 05/05/19 Start Time 08:40 Stop Time 09:20 Vibroacoustic Stimulation Used No Patient States Movement Yes Findings: Negative Rom+ - Plan Plan: reviewed SROM, FM, Contractions
== END 2019-05-05 09:56 | disposition home or self-care (01) ==
LOC: WFO 08:26 → FBP 08:48 → WFO 09:56
PROVIDERS: ATTEND Obstetrics & Gynecology
DX: O99.89 Other specified diseases and conditions complicating pregnancy, childbirth and the puerperium (principal); N89.8 Other specified noninflammatory disorders of vagina; Z3A.31 31 weeks gestation of pregnancy
CPT/HCPCS: 84112; 99213

== ENCOUNTER 2019-06-03 07:00 | Outpatient (CLI) | payer OTHER ==
[2019-06-03 19:51] LABS: CANDIDA GROUP DNA POSITIVE (NEGATIVE); CANDIDA KRUSEI DNA NEGATIVE (NEGATIVE); TRICHOMONAS VAGINALIS DNA NEGATIVE (NEGATIVE)
[2019-06-03 20:40] LABS: TRICHOMONAS VAGINALIS DNA NEGATIVE (NEGATIVE)
== END 2019-06-03 23:59 | disposition home or self-care (01) ==
LOC: LAB.R 07:00
PROVIDERS: ATTEND Nurse Practitioner Obstetrics & Gynecology
DX: Z36.85 Encounter for antenatal screening for Streptococcus B (principal); Z67.91 Unspecified blood type, Rh negative; O23.599 Infection of other part of genital tract in pregnancy, unspecified trimester; Z3A.00 Weeks of gestation of pregnancy not specified
CPT/HCPCS: 36415; 81599; 86850; 86886; 87491; 87591; 87661; 87797; 87801

== ENCOUNTER 2019-06-03 08:00 | Outpatient (CLI) | payer OTHER | END 2019-06-03 23:59 | disposition home or self-care (01) | LOC: LAB.WCP 08:00 | PROVIDERS: ATTEND Nurse Practitioner Obstetrics & Gynecology | DX: Z67.91 Unspecified blood type, Rh negative (principal) | CPT/HCPCS: 36415; 81599; 86886 ==

== ENCOUNTER 2019-07-05 04:02 | Observation (INO) | payer OTHER ==
[2019-07-05] MEDS ORDERED: LACTATED RINGERS 1,000 ML IV ONE (05:54)
[2019-07-05] MEDS ORDERED: PROMETHAZINE 25 MG/1 ML VIAL IM STA (06:41)
[2019-07-05] MEDS ORDERED: MORPHINE 10 MG/ML VIAL IM STA (06:41)
[2019-07-05] MEDS ORDERED: fentaNYL 100 MCG/2 ML VIAL IVP PRN (11:20)
[2019-07-05] MEDS ORDERED: METOCLOPRAMIDE 10 MG/2 ML VIAL IVP PRN (11:20)
[2019-07-05] MEDS ORDERED: SODIUM CHLORIDE FLUSH 0.9% 10 ML SYRINGE IVP PRN (11:20)
[2019-07-05] MEDS ORDERED: ONDANSETRON 4 MG/2 ML VIAL IVP PRN (11:20)
[2019-07-05] MEDS ORDERED: miSOPROStoL 200 MCG TABLET PR PRN (11:24)
[2019-07-05] MEDS ORDERED: LIDOCAINE-MPF 1% 30 ML VIAL ID PRN (11:24)
[2019-07-05] MEDS ORDERED: MINERAL OIL LIGHT 10 ML MC ONE (11:24)
[2019-07-05] MEDS ORDERED: METHYLERGONOVINE 0.2 MG/ML VIAL IM PRN (11:24)
[2019-07-05] MEDS ORDERED: TRANEXAMIC ACID 1,000 MG in SODIUM CHLORIDE 0.9% 100ML 100 ML IV PRN (11:24)
[2019-07-05] MEDS ORDERED: CARBOPROST TROMETHAMINE 250 MCG/ML AMP IM PRN (11:24)
[2019-07-05] MEDS ORDERED: OXYTOCIN/SODIUM CHLORIDE 500 ML IV PRN (11:24)
[2019-07-05] MEDS ORDERED: LACTATED RINGERS 1,000 ML IV SCH (12:00)
[2019-07-05] MEDS ORDERED: ACETAMINOPHEN 325 MG TABLET PO SCH (12:00)
[2019-07-05 12:04] VITALS: BP 134/80
--- NOTE | 2019-07-05 16:32 | Labor Flowsheet ---
Labor Flowsheet Datetime Report Generated by CPN: 07/05/2019 16:31 Datetime: 07/05/2019 16:14 VAGINAL EXAM Dilatation (cm): 1.0 Effacement (%): 80 Station: 0 Exam by: Peggy Rosado CNM Vaginal Bleeding: Normal Show Cervix, Consistency: Moderate Cervix, Position: Posterior Vaginal Exam Comments: Minimal change Datetime: 07/05/2019 16:11 COMMUNICATION Communication: RN at Bedside; Provider at Bedside Provider Notified (Name): Peggy Rosado CNM Datetime: 07/05/2019 16:04 I/O Interventions: Up to BR Datetime: 07/05/2019 15:35 Patient Position/Activity: Knee Chest Patient Care Comments: Peanut ball under chest Datetime: 07/05/2019 15:30 UTERINE ACTIVITY Monitor Mode: Palpation Frequency (min): 1-3 Quality: Moderate Duration (sec): 60-120 Resting Tone (Palpate): Relaxed Contraction Comments: Knee chest position. Rosa not capturing contractions ASSESSMENT A Monitor Mode: Telemetry FHR Baseline Rate : 135 Variability: Minimal - Undetectable to <=5 bpm Accelerations: None Decelerations: None Category: Category II PATIENT CARE Oxygen Method: Room Air Datetime: 07/05/2019 15:26 Communication Comments: See her last patient in the office, will be into assess as soon as she is d one. Datetime: 07/05/2019 15:00 Pattern: Normal: <= 5 Contractions in 10 Minutes Datetime: 07/05/2019 14:56 VITAL SIGNS NBP Sys/Crystal/Mean (mmHg): 143 : 78 : 93 Pulse: 82 LaborFlag: Labor Datetime: 07/05/2019 14:55 Monitor Interventions for UA: Rosa Adjusted Monitor Interventions for FHR: Ultrasound Adjusted Datetime: 07/05/2019 13:53 Stage of : Labor Respirations: 18 Temperature (C): 36.5 Temperature Route: Oral Datetime: 07/05/2019 11:46 PAIN Pain Relief Measures: Comfort Measures Pain Assessment Comments: Getting in the [facility]. EFM off, will dopple every 30-60 minutes and PRN Hygiene: Oral Care Datetime: 07/05/2019 11:34 Comments: Transfer to room 2101
[2019-07-05] MEDS ORDERED: SODIUM CHLORIDE FLUSH 0.9% 10 ML SYRINGE IVP SCH (17:00)
--- NOTE | 2019-07-05 18:03 | PROVIDER PROGRESS NOTE ---
- HPI Chief Complaint: Labor Check Current : Current EDU 07/01/19 Gestation 40 Weeks and 4 Days 1 Para 1 Vital Signs Temperature 37 C 07/05/19 04:30 Temperature 37.4 C 07/05/19 10:56 Heart Rate 86 07/05/19 10:56 Respiratory Rate 20 07/05/19 10:56 Blood Pressure 134/80 H 07/05/19 10:56 O2 Saturation 99 07/05/19 10:56 - Exam S: Giovanna is a 23yo who presented to triage this morning at 40.4wks for rule out labor. She reports having strong contractions since 0300 and had not slept all night. She is tearful, anxious, and rates her contractions at 7-9/10. Throughout OBS during day pt reports no relief from position changes, bath/shower or morphine&phenergan injection. O: 23yo care uncomplicated and adequate Initial U/S: 12/03/2018 @ 9.4wks gestation c/w LMP dating. TARIK by LMP. A NEG- Passive Anti-D antibody POSITIVE- titers redrawn and "minimal" Rubella immune Hep B neg, Hep C neg VZV immune HIV non-reactive; GC/CT neg Genetic testing: declined FAS: 02/10/2020 with the exception of mild bilateral renal pyelectasis. Anterior placenta, no previa. 3VC. Size c/w dating. Glucola 88 TDAP 04/12/2019 GBS & GC/CT: GBS pos; GC/Ct neg HSV: denies MOD: Anticipate ; Plans epidural for pain management; Expecting a girl - Jennifer. : Jose. 0600 FHTs in the 120s-130s, moderate variability, accels, no decels. Uterine contractions palpate moderate, relax fully in between and occur every 1- 4mins 0600 Vertex by BSUS. SVE is .5/80%/very posterior/mod/0 station Rechecked at approx 1830 and unchanged. Pt anxious and tearful about going home. Offered vega balloon elective induction. A: FHT Cat I Uterine contractions strong and regular Not in active labor Anxious patient, struggling with coping with early labor P: Pt offered to stay or to go home, chose to go home. Risks/benefits discussed and all questions answered. Discharged to home with instructions and education on when to return and warning signs. - Procedures NST Procedure: NST Procedure Start Time 08:40 Stop Time 09:20 Service Date of procedure: 07/05/19
[2019-07-05] MEDS ORDERED: ROPIVACAINE 0.2% 200 MG/100 ML BAG EP ONE (18:50)
[2019-07-05] MEDS ORDERED: OXYTOCIN/SODIUM CHLORIDE 500 ML IV ONE (19:50)
[2019-07-06] MEDS ORDERED: SERTRALINE 25 MG TABLET PO SCH (09:00)
== END 2019-07-05 16:55 | disposition home or self-care (01) ==
LOC: WFO 04:02 → FBP 04:05 → WFO 11:19 → FBP 11:20
PROVIDERS: ADMIT Advanced Practice Midwife; ATTEND Advanced Practice Midwife
DX: Z34.93 Encounter for supervision of normal pregnancy, unspecified, third trimester (principal)
CPT/HCPCS: 85025; 99214

== ENCOUNTER 2019-07-05 18:28 | Inpatient (IN) | payer OTHER ==
[2019-07-05] MEDS ORDERED: LACTATED RINGERS 1,000 ML IV ONE (18:39)
[2019-07-05] MEDS ORDERED: OXYTOCIN/SODIUM CHLORIDE 500 ML IV PRN (18:41)
[2019-07-05] MEDS ORDERED: SODIUM CHLORIDE FLUSH 0.9% 10 ML SYRINGE IVP PRN (18:41)
[2019-07-05] MEDS ORDERED: fentaNYL 100 MCG/2 ML VIAL IVP PRN (18:41)
[2019-07-05] MEDS: LACTATED RINGERS 1,000 ML IV SCH ×2 (18:50→23:15)
[2019-07-05 18:53] LABS: BASOPHILS % (AUTO) 0.2 %; EOSINOPHILS % (AUTO) 0.1 %; HGB - HEMOGLOBIN 14.2 g/dL (12.0-16.0); LYMPHOCYTES # (AUTO) 1.4 10^3/uL (1.5-3.5); MEAN CORPUSCULAR HEMOGLOBIN 30.2 pg (27.0-31.0); MEAN CORPUSCULAR HGB CONC 34.6 g/dL (32.0-36.0); MEAN CORPUSCULAR VOLUME 87.2 fL (81.0-99.0); MEAN PLATELET VOLUME 11.6 fL (7.9-10.8); MONOCYTES # (AUTO) 0.7 10^3/uL (0.0-1.0); MONOCYTES % (AUTO) 5.1 %; NEUTROPHILS # (AUTO) 12.1 10^3/uL (1.5-6.6); NEUTROPHILS % (AUTO) 84.1 %; PLT - PLATELET COUNT 221 10^3/uL (130-450); RED CELL DISTRIBUTION WIDTH 11.9 % (12.0-15.0); WHITE BLOOD COUNT 14.3 x10^3/uL (4.8-10.8)
[2019-07-05] MEDS ORDERED: ACETAMINOPHEN 325 MG TABLET PO SCH (19:00)
--- NOTE | 2019-07-05 19:21 | ANESTHESIA ---
Pre-Anesthesia VS, & Labs - Diagnosis term labor, IUP - Procedure Vaginal delivery Height 5 ft 7 in Body Mass Index 21.1 - NPO Last Fluid Intake: t/o day Last Food Intake: lunch - Is Patient ?: Yes - Lab Results Current Lab Results: Laboratory Tests 07/05/19 18:45: WBC 14.3 H, RBC 4.70, Hgb 14.2, Hct 41.0, MCV 87.2, MCH 30.2, MCHC 34.6, RDW 11.9 L, Plt Count 221, MPV 11.6 H, Neut # (Auto) 12.1 H, Lymph # (Auto) 1.4 L, [place] # (Auto) 0.7, Eos # (Auto) 0.0, Baso # (Auto) 0.0, Absolute Nucleated RBC 0.00, Nucleated RBC % 0.0 Lab results reviewed: Yes Fish Bones: 07/05/19 18:45 Home Medications and Allergies Active Medications Acetaminophen (Tylenol) 650 mg PO Q6H DOMINGA Fentanyl (Fentanyl) 50 mcg IVP Q1H PRN PRN Reason: PAIN Ampicillin Sodium 2 gm/ Sodium (Chloride) 100 mls @ 100 mls/hr IV ONCE ONE Stop: 07/05/19 20:29 Ampicillin Sodium 1 gm/ Sodium (Chloride) 100 mls @ 200 mls/hr IV Q4H DOMINGA Lactated Ringer's (Lr) 1,000 mls @ 150 mls/hr IV .Q6H40M DOMINGA Oxytocin/Sodium Chloride (Pitocin/Sodium Chloride) 500 mls @ 999 mls/hr IV PRN PRN; Protocol PRN Reason: POST- HEMORR PREVENTION Sodium Chloride (Normal Saline Flush 0.9%) 10 ml IVP PRN PRN PRN Reason: NEEDED PER PROVIDER ORDERS Sodium Chloride (Normal Saline Flush 0.9%) 10 ml IVP 0100,0900,1700 DOMINGA Pnv No.95/Ferrous Fum/Folic AC [ Vitamins Tablet] 1 tab PO DAILY 07/05/19 Sertraline [Zoloft] 25 mg PO DAILY 07/05/19 raNITIdine [Zantac] 150 mg PO BID 07/05/19 Allergies/Adverse Reactions: Allergies Allergy/AdvReac Type Severity Reaction Status Date / Time No Known Drug Allergies Allergy Verified 09/13/18 13:34 Anes History & Medical History - Anesthetic History Anesthesia Complications: reports: No previous complications Family history of Anesthesia Complications: Denies Family history of Malignant Hyperthermia: Denies - Medical History Cardiovascular: reports: None Pulmonary: reports: None Gastrointestinal: reports: None Urinary: reports: None Neuro: reports: None Musculoskeletal: reports: None Endocrine/Autoimmune: reports: None Blood Disorders: reports: None Skin: reports: None Smoking Status: Never smoker Exam General: Alert, Oriented x3, Cooperative Dental: WNL Mouth Openin Fingerbreadth Neck Mobility: Normal Mallampati classification: II Respiratory: No respiratory distress Cardiovascular: Regular rate Neurological: Normal speech Mental/Cognitive Status: Alert/Oriented X3, Normal for patient Cognitive Status: Within normal limits Plan Anesthesia Type: Epidural Consent for Procedure(s) Verified and Reviewed: Yes Code Status: Attempt Resuscitation ASA classification: 2-Mild systemic disease Is this case an emergency?: No
[2019-07-05] MEDS ORDERED: ONDANSETRON 4 MG/2 ML VIAL IVP PRN (19:25)
[2019-07-05] MEDS ORDERED: diphenhydrAMINE INJ 50 MG/ML VIAL IVP PRN (19:25)
[2019-07-05] MEDS ORDERED: NALOXONE 0.4 MG/ML VIAL IVP PRN (19:25)
[2019-07-05] MEDS ORDERED: LACTATED RINGERS 500 ML IV ONE (19:25)
[2019-07-05] MEDS ORDERED: ROPIVACAINE 0.2% 200 MG/100 ML BAG EP PRN (19:25)
[2019-07-05] MEDS ORDERED: NALBUPHINE 10 MG/ML AMP IVP PRN (19:25)
[2019-07-05] MEDS ORDERED: METOCLOPRAMIDE 10 MG/2 ML VIAL IVP PRN (19:25)
[2019-07-05] MEDS ORDERED: ePHEDrine 50 MG/ML VIAL IVP PRN (19:25)
[2019-07-05] MEDS ORDERED: AMPICILLIN 2 GM in SODIUM CHLORIDE 0.9% MINIBAG 100 ML IV ONE (19:30)
--- NOTE | 2019-07-05 20:10 | HISTORY & PHYSICAL EXAMINATION ---
Admit History - Visit Reason Visit Reason: Contractions - : 1 Parity: 0 Premature: 0 : 0 Care: positive: [facility] Risk/History: positive: None Complications This : positive: None Smoking Status: Never smoker - Mother's Labs Mother's Blood Type: positive: A Mother's RH: positive: Negative GBS: positive: Group B Strep Positive Rubella Status: positive: Immune - Other Maternal History Other Maternal History: Problems: GBS Positive renal anomaly- mild bilateral renal pyelectasis Rh negative- A NEG- Passive Anti-D antibody POSITIVE- titers redrawn and "minimal" Anxiety Initial U/S: 12/03/2018 @ 9.4wks gestation c/w LMP dating. TARIK by LMP. A NEG- Passive Anti-D antibody POSITIVE- titers redrawn and "minimal" Rubella immune Hep B neg, Hep C neg VZV immune HIV non-reactive; GC/CT neg Genetic testing: declined FAS: 02/10/2020 with the exception of mild bilateral renal pyelectasis. Anterior placenta, no previa. 3VC. Size c/w dating. Glucola 88 TDAP 04/12/2019 GBS & GC/CT: GBS pos; GC/Ct neg HSV: denies Breast pump Rx MOD: Anticipate ; Plans epidural for pain management; Expecting a girl - Jennifer. : Jose. Vertex by BSUS 06/15 pp contraception: desires to wait and see Family History: None Listed Surgical History: None Listed Social Factors: Non-contributory Meds/Allgy - Home Medications Home Medications: Ambulatory Orders Medication Instructions Recorded Confirmed Pnv No.95/Ferrous Fum/Folic AC 1 tab PO DAILY 07/05/19 07/05/19 [ Vitamins Tablet] Sertraline [Zoloft] 25 mg PO DAILY 07/05/19 07/05/19 raNITIdine [Zantac] 150 mg PO BID 07/05/19 07/05/19 - Allergies Allergies/Adverse Reactions: Allergies Allergy/AdvReac Type Severity Reaction Status Date / Time tree nut Allergy Anaphylaxis Verified 07/05/19 20:17 Review of Systems - Constitutional Constitutional: reports: Fatigue, Chills. denies: Fever - Eyes Eyes: reports: Pain. denies: Irritation, Blurred vision - Ears, Nose & Throat Ears, Nose & Throat: denies: Hearing loss, Vertigo, Nasal discharge, Postnasal drainage - Cardiovascular Cariovascular: denies: Irregular heart rate, Chest pain, Edema, Syncope - Respiratory Respiratory: denies: Cough, Wheezing, SOB at rest, SOB with exertion - Gastrointestinal Gastrointestinal: reports: Abdominal pain, Nausea. denies: Constipation, Diarrhea, Vomiting - Genitourinary Genitourinary: denies: Dysuria, Frequency, Flank pain - Integumentary Integumentary: denies: Lesions, Dryness - Neurological Neurological: denies: General weakness, Headache - Psychiatric Psychiatric: reports: Anxiety. denies: Depression, Suicidal - Endocrine Endocrine: denies: Polyuria, Polydypsia - All Other Systems All Other Systems: denies: Reviewed and negative Physical - Abdominal Exam Contraction Frequency (min/apart): 1-4 Contraction Intensity: positive: Moderate to strong Uterine Resting Tone: positive: Soft - Monitoring Heart Rate Baseline: 135 Strip Review: positive: Category I - Presentation Presentation: positive: Vertex - Vaginal Exam Membranes: positive: Membranes intact Dilation (in cm): 4 Effacement (%): 90 Station: positive: -1 (per admitting family assessment worker) Cervical Position: positive: Anterior - Speculum Exam Speculum Exam Performed: positive: No Plan for Labor - Plan For Labor I expect patient to be DC'd or transferred within 96 hours.: Yes Plan for Labor: Giovanna is a 23yo at 40.4wks who presents to Labor and Delivery in active labor. Her care has been adequate, and her course has been uncomplicated. Her dating is by Initial U/S: 12/03/2018 @ 9.4wks gestation c/w LMP dating. TARIK by LMP. Assessment: 23yo at 40.4wks gestation who presents in Active Labor Cat I Strip GBS Positive Rh Negative Pt currently comfortable with epidural Plan: Admit to Labor and Delivery Continuous Monitoring Epidural for pain management Diet/Activity per anesthesia Anticipate
[2019-07-05] MEDS ORDERED: OXYTOCIN/SODIUM CHLORIDE 500 ML IV SCH (22:00)
[2019-07-06] MEDS ORDERED: AMPICILLIN 1 GM in SODIUM CHLORIDE 0.9% MINIBAG 100 ML IV SCH ×2
[2019-07-06] MEDS ORDERED: SODIUM CHLORIDE FLUSH 0.9% 10 ML SYRINGE IVP SCH (01:00)
[2019-07-06] MEDS ORDERED: WITCH HAZEL/GLYCERIN 1 PAD TOP PRN (01:35)
--- NOTE | 2019-07-06 01:51 | DELIVERY NOTE ---
Delivery Note - Labor Labor: positive: Augmented by oxytocin - Delivery Method Delivery Method: positive: Spontaneous vaginal delivery - Presentation Presentation: positive: Vertex, DONNY - left occiput anterior - Nuchal Cord Nuchal Cord: positive: Present (sommersaulted through) - Amniotic Fluid Description Amniotic Fluid Description: positive: Light meconium - Laceration Laceration: positive: 1st degree, Periurethral - Suture Suture Type: positive: Vicryl Suture Size: positive: 4-0 - Delivery Outcome Delivery Outcome: positive: Livebirth - Eva : positive: Placed in direct skin contact with mother, Bulb syringe, [place] used Eva sex: positive: Female - Cord Cord: positive: 3 vessels - Placenta Placenta: positive: Intact, Spontaneous - Estimated Blood Loss Estimated Blood Loss (in cc): 150 - Post Delivery Events Post Delivery Events: positive: No post delivery events - Delivery Comments (Free Text/Narrative) Delivery Comments (Free Text/Narrative): Note: Labor: This 23 year old, , @40.4wks gestation by 9.4week Ultrasound, confirmed by LMP, presented @ 1830 in active labor. Cervix was 4/90/-1 and v ertex. FHR pattern demonstrated a Category I pattern. Normal labor course. Epidural placed upon maternal request. SROM occurred @ 2341 and a moderate amount of light meconium stained fluid was noted. She progressed to complete at 2350 and began spontaneous pushing efforts at 0013. : Normal of a 2896g female infant on 07/06/2019 @ 0053. Nuchal was present and baby was sommersaulted through. The was placed on maternal abdomen, stimulated, dried and placed skin to skin. Apgars 6 at one minute and 7 at five minutes. The umbilical cord was allowed to stop pulsating at which time it was doubly clamped by CNM and cut by FOB. Pitocin administered via IV for hemostasis. Fundal massage and gentle cord traction applied for active third stage management. Cord blood was obtained. Placenta delivered spontaneously and intact at 0104. Three vessel cord. EBL 150mL. Fourth Stage: Uterine fundus firm and without excessive bleeding. There were bilateral periurethral first degree tears, otherwise the perineum, vagina, and cervix were inspected and found to be intact. The tears were repaired in the usual sterile fashion using 4-0 vicryl sutures. Vaginal examination following repair was done. Tissues well approximated. initiated. Family bonding well. Both mother and baby are in stable condition.
[2019-07-06] MEDS: IBUPROFEN 600 MG TABLET PO SCH ×4 (05:05→22:09)
[2019-07-06] MEDS: ACETAMINOPHEN 325 MG TABLET PO PRN ×3 (08:28→22:08)
[2019-07-06] MEDS: DOCUSATE SODIUM 100 MG CAPSULE PO SCH ×2 (08:29→22:07)
[2019-07-06] MEDS ORDERED: SERTRALINE 50 MG TABLET PO SCH (09:00)
[2019-07-06] MEDS ORDERED: RHO(D) IMMUNE GLOBULIN 300 MCG SYRINGE IM ONE (18:00)
[2019-07-06] MEDS ORDERED: RHO(D) IMMUNE GLOBULIN 300 MCG SYRINGE IVP ONE (19:00)
[2019-07-07] MEDS: IBUPROFEN 600 MG TABLET PO SCH ×2 (08:12→08:26)
[2019-07-07] MEDS: DOCUSATE SODIUM 100 MG CAPSULE PO SCH (08:26)
--- NOTE | 2019-07-07 10:11 | PROVIDER PROGRESS NOTE ---
Subjective - Prog Note Date Prog Note Date: 07/06/19 Prog Note Time: 11:00 - Subjective Subjective: S: pt sleeping in bed. Partner reports pain well controlled. O: RN reports pt using oral pain meds for effective pain management Using bottle/formula for infant nutrition Lochia NWL A: day 1. Normal recovery. P: Evaluate for discharge home tomorrow Continue with routine care. Objective - Vital Signs/Intake & Output Vital Signs: Vital Signs x48h Temp Pulse Resp BP Pulse Ox 07/07/19 08:16 36.7 C 91 18 131/67 H 100 Intake & Output: Intake & Output 07/04/19 07/05/19 07/06/19 07/07/19 23:59 23:59 23:59 23:59 Intake Total 1200.0 1000 Output Total 750 Balance 1200.0 250 - Lab Results Fish Bones: 07/05/19 18:45
--- NOTE | 2019-07-07 10:17 | PROVIDER PROGRESS NOTE ---
Subjective - Prog Note Date Prog Note Date: 07/07/19 Prog Note Time: 07:00 - Subjective Pt reports feeling: Improved Subjective: FINAL PROGRESS NOTE S: Pt awake and reports pain well managed with PO meds. Reports pain in vulva is improving and using mary bottle is helping. Difficulty sleeping is reported. Pt reports feeling "low". She reports a strong support system at home and is looking forward to discharge. Described infant fondly and reports difficulty with feedings in the night r/t amniotic fluid in baby's belly, and that she has since improved. O: Pt appears comfortable in bed. Fundus firm. Lochia wnl. Rophylac given IVP. GBS pos Status post term . Bilateral 1deg periurethral tears- healing well. A: 23yo day 2. Bottle feeding/Formula High risk for Mood Disorder of period RH neg- rophylac given GBS- adequately treated. P: Continue routine care. Discharge home today. Continue bottle feeding- educated to breastmilk production suppression. Significant time spent educating to positive attachment behaviors and signs/symptoms of worsening mood disorder. Resources given and discussed including [place] [facility] offered by temporary staff accountant. Manage pp pain with OTC meds-pt declines need for Rx. Objective - Vital Signs/Intake & Output Vital Signs: Vital Signs x48h Temp Pulse Resp BP Pulse Ox 07/07/19 08:16 36.7 C 91 18 131/67 H 100 Intake & Output: Intake & Output 07/04/19 07/05/19 07/06/19 07/07/19 23:59 23:59 23:59 23:59 Intake Total 1200.0 1000 Output Total 750 Balance 1200.0 250 - Lab Results Fish Bones: 07/05/19 18:45
--- NOTE | 2019-07-07 10:22 | Discharge Plan ---
Discharge Plan Problem Reviewed?: Yes Disposition: Home, Self Care Condition: Good Diet: Regular Activity Restrictions: No Restrictions Shower Restrictions: No Driving Restrictions: No Plan of Treatment: Follow up with SARMAD Rosado via telehealth at 1wk , then in the office and 3wks and 6wks No Smoking: If you smoke, Please STOP! Call for help. Follow-up with: Peggy Rosado ARNP [Provider Admit Priv/Credential] -
--- NOTE | 2019-07-07 10:28 | DISCHARGE SUMMARY ---
Discharge Summary Admit Date: 07/05/19 Discharge Date: 07/07/19 Discharging Provider: Peggy Rosado Code Status: Attempt Resuscitation Condition at Discharge: Good Discharge Disposition: 01 Home, Self Care - DIAGNOSES Admission Diagnoses: Active labor Discharge Diagnoses with Status of Each Condition: Vaginal Delivery - HPI History of Present Illness: Date of Admission 07/05/2019 Date of Discharge 07/07/2019 Diagnosis on Admission: 1. A 24yo at 40.4 week intrauterine 2. Early Active Labor 3. GBS Positive 4. Rh negative 5. Anxiety 6. renal abnormality Diagnosis on Discharge 1. A 23yo s/p spontaneous vaginal delivery on 07/06/2019 2. Normal recovery 3. GBS- adequate coverage 4. S/P Rhogam on 07/07/2019 5. Anxiety/depression present 6. [place] follow up O/P via peds for renal eval Brief History: She is a patient at [facility] who presented on 07/05/2019 with complaints of contractions. The patient was found to contract every 1 to 3 minutes and her cervix was 4cm dilated, 90%effaced, and -1 station. She as augmented with pitocin and spontaneously delivered a viable female infant named Jennifer. Light meconium was noted on SROM. Apgars were 6 and 7- and 1 and 5 minutes respectively. EBL 150mL. The patient has bilateral first degree laceration to the periurethral area that were repaired with 4-0 vicryl in usual fashion under sterile conditions. She has been doing well in her course. She is ambulating and tolera ting a regular diet. She is urinating without difficulty and her lochia is normal. Her pain is well controlled with oral medications. She received Rhogam on 07/07/2019. Continue bottle feeding- educated to breastmilk production suppression. Significant time spent educating to positive attachment behaviors and signs/symptoms of worsening mood disorder. Resources given and discussed including [place] [facility] offered by staffing program manager. She will be discharged home today on day #2 with OTC ibuprofen and colace. She intends to follow up with myself at [facility] in 1 weeks for routine visit and mental health evaluation. She has been given precautions to call if she has any worsening fevers, chills, abdominal pain, increased bleeding or foul smelling vaginal lochia. - ALLERGIES Allergies/Adverse Reactions: Allergies Allergy/AdvReac Type Severity Reaction Status Date / Time tree nut Allergy Anaphylaxis Verified 07/05/19 20:17 - MEDICATIONS Home Medications: Ambulatory Orders Medication Instructions Recorded Confirmed Pnv No.95/Ferrous Fum/Folic AC 1 tab PO DAILY 07/05/19 07/05/19 [ Vitamins Tablet] Sertraline [Zoloft] 25 mg PO DAILY 07/05/19 07/05/19 raNITIdine [Zantac] 150 mg PO BID 07/05/19 07/05/19 - PHYSICAL EXAM AT DISCHARGE General Appearance: positive: No acute distress Eyes Bilateral: positive: Normal inspection ENT: positive: ENT inspection nml Neck: positive: Nml inspection Respiratory: positive: Chest non-tender Skin: positive: Color nml Extremities: positive: Non-tender Neurologic/Psychiatric: positive: Oriented x3, Depressed mood/affect. negative: Mood/affect nml - LABS Result Diagrams: 07/05/19 18:45 - TIME SPENT Time Spent in Discharge (Minutes): 25
[2019-07-07 14:35] VITALS: BP 128/66
--- NOTE | 2019-07-07 17:33 | Labor Flowsheet ---
Labor Flowsheet Datetime Report Generated by CPN: 07/07/2019 17:33 Datetime: 07/07/2019 13:27 VITAL SIGNS NBP Sys/Crystal/Mean (mmHg): 106 : 61 : 72 Pulse: 86 Datetime: 07/06/2019 01:29 Membranes Ruptured Date/Time: 07/05/2019 23:41 Datetime: 07/06/2019 01:04 Stage of : Datetime: 07/06/2019 01:00 LaborFlag: Labor Datetime: 07/06/2019 00:53 Stage 2 Comments: viable female born @ 0053 Datetime: 07/06/2019 00:50 ASSESSMENT A Monitor Mode: Telemetry FHR Baseline Rate : 145 Variability: Moderate 6-25 bpm Accelerations: None Decelerations: Variable Category: Category II Datetime: 07/06/2019 00:49 SpO2 (%): 100 Datetime: 07/06/2019 00:35 Temperature (C): 37.2 Datetime: 07/06/2019 00:30 UTERINE ACTIVITY Monitor Mode: External Frequency (min): 2-3 Quality: Strong Duration (sec): 95-130 Pattern: Normal: <= 5 Contractions in 10 Minutes Resting Tone (Palpate): Relaxed Pitocin Checklist: At Least 1 Acceleration of 15 bpm x 15 Seconds in 30 Minutes or Adequate Variabi lity; No More than 1 Late Deceleration Occurred in Past 30 Minutes; No More than 5 Uterine Contractio ns in 10 Minutes for any 20 Minute Interval; Uterus Palpates Soft between Contractions Datetime: 07/06/2019 00:13 STAGE 2 Pushing: Coached on Pushing; Urge to Push Pushing Position: Pushing with Contractions Pushing Progress: Descent with Pushing Datetime: 07/06/2019 00:08 COMMUNICATION Communication: Provider at Bedside Datetime: 07/05/2019 23:59 Patient Care Comments: 760ml UO Datetime: 07/05/2019 23:54 Patient Position/Activity: Semi-Fowlers Datetime: 07/05/2019 23:51 Provider Reviewed Strip: Yes Provider Notified (Name): Alonzo CNM Notification Reason: Status Update; Status; Labor Status; Membrane Status; Uterine Activity Communication Comments: Nikki STEVENSON called CNM to update on complete dilation +2 station. SROM par ticulate meconium Datetime: 07/05/2019 23:50 VAGINAL EXAM Dilatation (cm): 10.0 Effacement (%): 100 Station: 2 Exam by: Alba Zavala RN Datetime: 07/05/2019 23:41 Membrane Status: Ruptured Membranes Rupture Method: Spontaneous Amniotic Fluid Color: Particulate Meconium Amniotic Fluid Amount: Moderate Amniotic Fluid Odor: Normal Datetime: 07/05/2019 23:30 PATIENT CARE Oxygen Method: Room Air Datetime: 07/05/2019 23:22 MEDICATIONS Pitocin (milliunits): Increased to @ 3 Datetime: 07/05/2019 21:30 Contraction Comments: uterine irritability Datetime: 07/05/2019 19:50 I/O Interventions: Lewis Cath Inserted Datetime: 07/05/2019 19:20 PAIN Pain Presence: None/Denies Pain Coping: Talking Through Contractions MATERNAL ASSESSMENT Level of Consciousness: Alert Headache: Denies Breath Sounds, Left: Clear and Equal Breath Sounds, Right: Clear and Equal Nausea/Vomiting: Denies RUQ Epigastric Pain: Denies Maternal Comments: tingling L foot, numbness in L leg Anesthesia Level Check: T10- Umbilicus Datetime: 07/05/2019 19:15 Monitor Interventions for UA: [place] Adjusted Monitor Interventions for FHR: Ultrasound Adjusted Datetime: 07/05/2019 19:03 ANESTHESIA Epidural Procedure: Loading Dose
== END 2019-07-07 15:00 | disposition home or self-care (01) | DRG 807 ==
LOC: WFO 18:28 → FBP 18:29 → WFO 18:41
PROVIDERS: ADMIT Advanced Practice Midwife; ATTEND Advanced Practice Midwife
PROC: 10E0XZZ Delivery of Products of Conception, External Approach (ICD-10-PCS; principal; 2019-07-06)
PROC: 0HQ9XZZ Repair Perineum Skin, External Approach (ICD-10-PCS; 2019-07-06)
DX: O99.824 Streptococcus B carrier state complicating childbirth (principal); Z37.0 Single live birth; O36.8930 Maternal care for other specified fetal problems, third trimester, not applicable or unspecified; O99.344 Other mental disorders complicating childbirth; F41.9 Anxiety disorder, unspecified; O69.81X0 Labor and delivery complicated by cord around neck, without compression, not applicable or unspecified; O77.0 Labor and delivery complicated by meconium in amniotic fluid; O70.0 First degree perineal laceration during delivery; O75.89 Other specified complications of labor and delivery; Z67.91 Unspecified blood type, Rh negative; Z3A.40 40 weeks gestation of pregnancy
CPT/HCPCS: 36415; 83033; 85025; 86900; 86901; 99214; A9270; G0378; J7120

== ENCOUNTER 2019-07-23 12:25 | Emergency (ER) | payer OTHER ==
[2019-07-23 12:52] VITALS: BP 115/86
--- NOTE | 2019-07-23 15:43 | ED Physician Documentation ---
PD HPI SKIN - Stated complaint Stated Complaint: RASH - Chief complaint Chief Complaint: Wound - History obtained from History obtained from: Patient - History of Present Illness Timing - onset: How many weeks ago (2) Timing - duration: Weeks (2) Timing - details: Gradual onset, Still present Location: RUE, LLE Quality / character: Itchy, Discolored Associated symptoms: No: Fever Contributing factors: Insect bite /sting. No: Exposed to medication Similar symptoms before: Has not had sx before Recently seen: Not recently seen - Additional information Additional information: 23-year-old female presents to the emerge department with tiny red bumps on her wrist that are itchy and painful. She has had something similar to happen to her left ankle 2 weeks ago and this had became itchy and eventually healed over there is no eschar over it is no longer itchy or painful. She has not had this happen to her previously she has been walking in in the [place] and states she thinks she has chiggers. 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 : None HEENT: None Psych: None Musculoskeletal: None Derm: None - Past Surgical History Past Surgical History: No - Present Medications Home Medications: Ambulatory Orders Medication Instructions Recorded Confirmed No Known Home Medications 07/23/19 07/23/19 - Allergies Allergies/Adverse Reactions: Allergies Allergy/AdvReac Type Severity Reaction Status Date / Time tree nut Allergy Anaphylaxis Verified 07/23/19 12:52 - Social History Does the pt smoke?: Yes Smoking Status: Current every day smoker Does the pt drink ETOH?: Yes Does the pt have substance abuse?: No - Immunizations Immunizations are current?: Yes - POLST Patient has POLST: No PD ED PE NORMAL - Vitals Vital signs reviewed: Yes (Hypertensive mild) - General General: No acute distress, Well developed/nourished - HEENT HEENT: Atraumatic, PERRL, EOMI - Neck Neck: Supple, no meningeal sign - Respiratory Respiratory: No respiratory distress - Derm Derm: Normal color, Warm and dry, Other (Over the left ankle is an area with tiny eschar in a row consistent with healed bug bites. There is no Kebnerization and no extention beyond the initial insult. There are a line of 4 tiny red bumps on the right wrist as well. These are fresh appearing. ) - Extremities Extremities: No deformity, No edema, No calf tenderness / cord - Neuro Neuro: Alert and oriented X 3, bridge attacher 2-12 intact, No motor deficit, No sensory deficit, Normal speech Eye Opening: Spontaneous Motor: Obeys Commands Verbal: Oriented GCS Score: 15 - Psych Psych: Normal mood, Normal affect Results - Vitals Vitals: Vital Signs - 24 hr 07/23/19 12:50 Temperature 36.8 C Heart Rate 88 Respiratory 18 Rate Blood Pressure 115/86 H O2 Saturation 99 Oxygen O2 Source Room air PD MEDICAL DECISION MAKING - ED course Complexity details: considered differential, d/w patient ED course: 23-year-old female with tiny red dots only isolated to the left ankle and right wrist appear to be bug bites that on the ankle appear to have healed benign. I do not believe there is any specific treatment that is required for these bug bites. I do not see this as a manifestation of scabies as it is well localized and on only 2 small areas of exposed skin on the patient's body. Departure - Departure Disposition: 01 Home, Self Care Clinical Impression: Bug bites Qualifiers: Encounter type: initial encounter Qualified Code(s): W57.XXXA - Bitten or stung by nonvenomous insect and other nonvenomous arthropods, initial encounter Condition: Stable Instructions: ED Bite Chigger, ED Bite Insect Follow-Up: [facility] [Provider Group]
== END 2019-07-23 16:09 | disposition home or self-care (01) ==
LOC: ED 12:25
DX: S60.861A Insect bite (nonvenomous) of right wrist, initial encounter (principal); S90.562A Insect bite (nonvenomous), left ankle, initial encounter; W57.XXXA Bitten or stung by nonvenomous insect and other nonvenomous arthropods, initial encounter; Y93.01 Activity, walking, marching and hiking; Y92.821 Forest as the place of occurrence of the external cause; F17.200 Nicotine dependence, unspecified, uncomplicated
CPT/HCPCS: 99281; 99282

== ENCOUNTER 2019-11-08 20:53 | Outpatient (CLI) | payer OTHER | END 2019-11-08 20:54 | disposition EMS.NT | LOC: EMS 20:53 | PROVIDERS: ATTEND Surgery | DX: R07.0 Pain in throat (principal); R51 Headache ==

== ENCOUNTER 2019-12-17 11:12 | Emergency (ER) | payer OTHER ==
[2019-12-17 11:46] LABS: BASOPHILS % (AUTO) 0.5 %; EOSINOPHILS # (AUTO) 0.1 10^3/uL (0.0-0.7); EOSINOPHILS % (AUTO) 1.7 %; HGB - HEMOGLOBIN 13.9 g/dL (12.0-16.0); LYMPHOCYTES # (AUTO) 2.5 10^3/uL (1.5-3.5); LYMPHOCYTES % (AUTO) 33.4 %; MEAN CORPUSCULAR HGB CONC 34.2 g/dL (32.0-36.0); MEAN CORPUSCULAR VOLUME 87.7 fL (81.0-99.0); MEAN PLATELET VOLUME 9.8 fL (7.9-10.8); MONOCYTES # (AUTO) 0.5 10^3/uL (0.0-1.0); MONOCYTES % (AUTO) 6.3 %; NEUTROPHILS # (AUTO) 4.3 10^3/uL (1.5-6.6); NEUTROPHILS % (AUTO) 57.8 %; PLT - PLATELET COUNT 327 10^3/uL (130-450); RED BLOOD COUNT 4.64 10^6/uL (4.20-5.40); RED CELL DISTRIBUTION WIDTH 11.3 % (12.0-15.0); WHITE BLOOD COUNT 7.5 x10^3/uL (4.8-10.8)
[2019-12-17 11:59] LABS: ALBUMIN 4.6 g/dL (3.2-5.5); ALBUMIN/GLOBULIN RATIO 1.4 (1.0-2.2); BILIRUBIN,TOTAL 0.4 mg/dL (0.2-1.0); CALCIUM 9.7 mg/dL (8.5-10.3); CREATININE 0.7 mg/dL (0.4-1.0); TOTAL PROTEIN 7.9 g/dL (6.7-8.2)
[2019-12-17] MEDS ORDERED: SODIUM CHLORIDE 0.9% 1,000 ML IV STA (12:02)
[2019-12-17] MEDS ORDERED: KETOROLAC 30 MG/ML VIAL IVP STA (12:02)
--- NOTE | 2019-12-17 12:04 | ED Physician Documentation ---
PD HPI ABD PAIN - Stated complaint Stated Complaint: FEMALE - Chief complaint Chief Complaint: Abd Pain - History obtained from History obtained from: Patient - History of Present Illness Timing - onset: Enter time (1000), Today Timing - duration: Hours Timing - details: Abrupt onset, Still present Quality: Cramping, Aching, Sharp, Pain Location: LLQ Radiation: Left flank Improved by: Meds (ibuprofen) Worsened by: Other (nothing) Associated symptoms: Nausea. No: Vomiting Similar symptoms before: Diagnosis (labor pains) Recently seen: Not recently seen - Additional information Additional information: Previously well 24-year-old female began to have pain in her left lower quadrant radiating into her left flank at 10 AM this morning. The patient is in pain but indicates the pain is not worse with walking or standing. She took some ibuprofen and she thinks this may have helped some. Review of Systems Constitutional: denies: Fever Eyes: denies: Decreased vision Ears: denies: Ear pain Nose: denies: Congestion Throat: denies: Sore throat Cardiac: denies: Chest pain / pressure Respiratory: denies: Dyspnea, Cough GI: reports: Abdominal Pain, Nausea. denies: Vomiting : reports: Dysuria, Frequency Skin: denies: Rash Musculoskeletal: reports: Back pain. 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 : None HEENT: None Psych: None Musculoskeletal: None Derm: None - Past Surgical History Past Surgical History: No - Present Medications Home Medications: Ambulatory Orders Medication Instructions Recorded Confirmed Ondansetron Odt [Zofran] 4 mg TL Q6H PRN #10 tablet 12/16/20 Oxycodone HCl/Acetaminophen 1 - 2 each PO Q6H PRN #14 tablet //20 [Percocet 5-325 mg Tablet] - Allergies Allergies/Adverse Reactions: Allergies Allergy/AdvReac Type Severity Reaction Status Date / Time tree nut Allergy Anaphylaxis Verified 07/23/19 12:52 - Social History Does the pt smoke?: Yes Smoking Status: Never smoker Does the pt drink ETOH?: Yes Does the pt have substance abuse?: No - Immunizations Immunizations are current?: Yes - POLST Patient has POLST: No PD ED PE NORMAL - Vitals Vital signs reviewed: Yes - General General: Alert and oriented X 3, Well developed/nourished, Other (Appears to be in pain with dramatic pain behavior and cell pourer tone with flattened affect) - HEENT HEENT: Atraumatic, PERRL - Neck Neck: Supple, no meningeal sign, No bony TTP - Cardiac Cardiac: RRR, No murmur - Respiratory Respiratory: No respiratory distress, Clear bilaterally - Abdomen Abdomen: Normal bowel sounds, Soft, Non tender, Non distended, No organomegaly - Back Back: No CVA TTP, No spinal TTP - Derm Derm: Normal color, Warm and dry, No rash - Extremities Extremities: No deformity, Normal ROM s pain, No edema, No calf tenderness / cord - Neuro Neuro: Alert and oriented X 3, cell tester 2-12 intact, No motor deficit, No sensory deficit, Normal speech Eye Opening: Spontaneous Motor: Obeys Commands Verbal: Oriented GCS Score: 15 - Psych Psych: Normal mood, Normal affect Results - Vitals Vitals: Vital Signs - 24 hr 12/17/19 12/17/19 12/17/19 11:24 11:44 12:45 Temperature 36 C L 37 C 36.9 C Heart Rate 78 87 88 Respiratory 20 26 H 16 Rate Blood Pressure 119/103 H 145/85 H 110/74 O2 Saturation 100 100 100 12/17/19 13:56 Temperature 37.2 C Heart Rate 85 Respiratory 16 Rate Blood Pressure 130/75 O2 Saturation 99 Oxygen O2 Source Room air - Labs Labs: Laboratory Tests 12/17/19 12/17/19 12/17/19 11:30 11:30 12:21 WBC 7.5 RBC 4.64 Hgb 13.9 Hct 40.7 MCV 87.7 MCH 30.0 MCHC 34.2 RDW 11.3 L Plt Count 327 MPV 9.8 Neut # (Auto) 4.3 Lymph # (Auto) 2.5 [place] # (Auto) 0.5 Eos # (Auto) 0.1 Baso # (Auto) 0.0 Absolute Nucleated RBC 0.00 Nucleated RBC % 0.0 Sodium 137 Potassium 3.2 L Chloride 103 Carbon Dioxide 23 Anion Gap 11.0 BUN 13 Creatinine 0.7 Estimated GFR (MDRD) 104 Glucose 118 H Calcium 9.7 Total Bilirubin 0.4 AST 19 ALT 19 Alkaline Phosphatase 67 Total Protein 7.9 Albumin 4.6 Globulin 3.3 Albumin/Globulin Ratio 1.4 Lipase 28 Urine Color YELLOW Urine Clarity CLEAR Urine pH 6.0 Ur Specific [place] 1.025 Urine Protein NEGATIVE Urine Glucose (UA) NEGATIVE Urine Ketones NEGATIVE Urine Occult Blood MODERATE H Urine Nitrite NEGATIVE Urine Bilirubin NEGATIVE Urine Urobilinogen 0.2 (NORMAL) Ur Leukocyte Esterase NEGATIVE Urine RBC 6-10 H Urine WBC 0-3 Ur Squamous Epith Cells MOD Squamous H Urine Bacteria Rare Ur Microscopic Review INDICATED Urine Culture Comments NOT INDICATED Urine HCG, Qual NEGATIVE - Rads (name of study) CT ab/pel Radiology: Prelim report reviewed (Impression: 1. A 6 mm distal left ureteral stone resulting in mild left hydroureter and mild prominence of the left renal pelvis. No massimo hydronephrosis on the left. There are also left-sided nephroliths. 2. Normal appendix.), EMP read indepedently, See rad report Procedures - Bedside sono Bedside sono by EMP: With use of bedside ultrasound the left flank is imaged there is evidence of hydronephrosis and the kidney is sonographically nontender PD MEDICAL DECISION MAKING - ED course Complexity details: reviewed old records, reviewed results, re-evaluated patient, considered differential, d/w patient ED course: 24 y/o female comes into the emergency department in obvious pain with left flank pain and no modifying factors and she has hydro on bedside ultrasound on the left side. She has some improvement with the use of IV toradal and IV saline. CT shows the 6mm stone in the distal L ureter. Departure - Departure Disposition: 01 Home, Self Care Clinical Impression: Ureterolithiasis Condition: Stable Instructions: ED Stone Renal W Colic Follow-Up: Raffy Sahni MD [Provider Admit Priv/Credential] - [facility] [Provider Group] Prescriptions: Oxycodone HCl/Acetaminophen [Percocet 5-325 mg Tablet] 1 - 2 each PO Q6H PRN #14 tablet PRN Reason: pain Ondansetron Odt [Zofran] 4 mg TL Q6H PRN #10 tablet PRN Reason: Nausea / Vomiting
[2019-12-17 12:57] LABS: BILIRUBIN,URINE NEGATIVE (NEGATIVE); GLUCOSE, URINE (UA) NEGATIVE (NEGATIVE); KETONES,URINE (UA) NEGATIVE (NEGATIVE); LEUKOCYTE ESTERASE, URINE NEGATIVE (NEGATIVE); NITRITE,URINE NEGATIVE (NEGATIVE); OCCULT BLOOD,URINE MODERATE (NEGATIVE); PROTEIN,URINE NEGATIVE (NEGATIVE); UROBILINOGEN,URINE 0.2 (NORMAL) E.U./dL (NORMAL)
[2019-12-17 13:11] LABS: BACTERIA,URINE Rare /HPF (None Seen); CLARITY,URINE CLEAR (CLEAR); HCG UR QUAL NEGATIVE; SQUAMOUS EPITHELIAL CELL,UR MOD Squamous (<= Few)
[2019-12-17 13:57] VITALS: BP 130/75
--- NOTE | 2019-12-17 14:22 | CT Report ---
PROCEDURE: Abdomen/Pelvis WO INDICATIONS: LLQ pain radiating to L flank TECHNIQUE: Noncontrast 5 mm thick sections acquired from the diaphragms to the symphysis. 5 mm coronal and sagi ttal reformats were then performed. For radiation dose reduction, the following was used: automated exposure control, adjustment of mA and/or kV according to patient size. COMPARISON: None. FINDINGS: Image quality: Excellent. ABDOMEN: Lung bases: Lung bases are clear. Heart size is normal. Solid organs: Liver and spleen are normal in size. Gallbladder is unremarkable Pancreas is normal in contours. No adrenal nodules. Kidneys are normal in size. Right kidney is without nephrolithiasi s or hydronephrosis. There are 2 punctate left nephroliths measuring approximately 3 mm in size. Ther e is mild left-sided hydroureter and prominence of the left renal pelvis without massimo hydronephrosis . A 6 mm distal left ureteral stone is visualized a short distance proximal to the left ureterovesicu lar junction. No urinary bladder stones seen. No perinephric or periureteral stranding. Peritoneum and bowel: Unenhanced bowel loops demonstrate normal wall thickness and caliber. No free fluid or air. Nodes and vessels: No retroperitoneal or mesenteric adenopathy by size criteria. Aorta and inferior vena cava are normal in caliber. Miscellaneous: Small fat-containing umbilical hernia without acute inflammation. PELVIS: Genitourinary: Bladder wall thickness is normal. Miscellaneous: No inguinal hernias or adenopathy. Bones: No suspicious bony lesions. No vertebral body compression fractures. IMPRESSION: 1. A 6 mm distal left ureteral stone resulting in mild left hydroureter and mild prominence of the le ft renal pelvis. No massimo hydronephrosis on the left. There are also left-sided nephroliths. 2. Normal appendix. Reviewed by: David Finney MD on 12/17/2019 2:21 PM PDT Approved by: David Finney MD on 12/17/2019 2:21 PM PDT Station ID: [id number]
== END 2019-12-17 14:53 | disposition home or self-care (01) ==
LOC: ED 11:12
DX: N13.2 Hydronephrosis with renal and ureteral calculous obstruction (principal); F17.200 Nicotine dependence, unspecified, uncomplicated
CPT/HCPCS: 36415; 74176; 80053; 81001; 81003; 81025; 83690; 85025; 87086; 96374; 99284

== ENCOUNTER 2019-12-20 11:19 | Emergency (ER) | payer OTHER ==
[2019-12-20 13:14] VITALS: BP 112/69
--- NOTE | 2019-12-20 13:15 | ED Physician Documentation ---
PD HPI ABD PAIN - Stated complaint Stated Complaint: KIDNEY STONE F/U - Chief complaint Chief Complaint: Abd Pain - History obtained from History obtained from: Patient - Additional information Additional information: Patient comes emergency department complaining of ongoing left lower quadrant and pelvic pain after being diagnosed with a 6 mm ureteral stone on the of this month. Patient had CT scan done at that time and was found to have a calculus that had reached the left UVJ. She was also found to have a couple of smaller stones up in the kidney. Patient states she has not had any fevers or chills. No blood in her urine. No dysuria. She states she continuously feels a cramp in her left lower quadrant and she is just wondering "what what is going on". Patient has not been using a strainer and does not know if she has passed the stone or not. Review of Systems Ten Systems: 10 systems reviewed and negative Constitutional: reports: Reviewed and negative Eyes: reports: Reviewed and negative Ears: reports: Reviewed and negative Nose: reports: Reviewed and negative Throat: reports: Reviewed and negative Cardiac: reports: Reviewed and negative Respiratory: reports: Reviewed and negative GI: reports: Abdominal Pain. 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 : None HEENT: None Psych: None Musculoskeletal: None Derm: None - Past Surgical History Past Surgical History: No - Present Medications Home Medications: Ambulatory Orders Medication Instructions Recorded Confirmed Ondansetron Odt [Zofran] 4 mg TL Q6H PRN #10 tablet 12/17/19 Oxycodone HCl/Acetaminophen 1 - 2 each PO Q6H PRN #14 tablet 12/17/19 [Percocet 5-325 mg Tablet] - Allergies Allergies/Adverse Reactions: Allergies Allergy/AdvReac Type Severity Reaction Status Date / Time tree nut Allergy Anaphylaxis Verified 07/23/19 12:52 - Social History Does the pt smoke?: Yes Smoking Status: Never smoker Does the pt drink ETOH?: Yes Does the pt have substance abuse?: No - Immunizations Immunizations are current?: Yes - POLST Patient has POLST: No PD ED PE NORMAL - Vitals Vital signs reviewed: Yes - General General: Alert and oriented X 3, No acute distress - HEENT HEENT: PERRL - Neck Neck: Supple, no meningeal sign - Cardiac Cardiac: RRR, No murmur - Respiratory Respiratory: Clear bilaterally - Abdomen Abdomen: Soft, Non distended, Other (Mild left pelvic/suprapubic tenderness, no rebound or guarding.) - Back Back: No CVA TTP - Derm Derm: Normal color, Warm and dry, No rash - Extremities Extremities: No deformity, No edema, No calf tenderness / cord - Neuro Neuro: Alert and oriented X 3, Other (Grossly normal) - Psych Psych: Normal mood, Normal affect Results - Vitals Vitals: Vital Signs - 24 hr 12/20/19 11:43 Temperature 36.7 C Heart Rate 86 Respiratory 18 Rate Blood Pressure 104/68 O2 Saturation 98 Oxygen O2 Source Room air PD MEDICAL DECISION MAKING - ED course Complexity details: considered differential, d/w patient ED course: I discussed with the patient that her stone is on the larger end of possible stones sizes and that it is very possible that she is still in the process of working the stone through the UVJ. I do not feel that repeat imaging is indicated at this time. The patient still has pain medication at home and does not have any signs of infection. She has not been using the strainer, and I will give her a strainer today. She states she was not Given urology follow-up on the first visit so I will do this today, as well. I discussed with the patient that if she is not feeling better in the next 1 to 2 weeks, then she will need to make a follow-up appointment with urology. Departure - Departure Disposition: Home, Self Care Clinical Impression: Kidney stone on left side Condition: Stable Instructions: ED Stone Renal W Colic Follow-Up: Kia Jang MD [Physician No Access] - Forms: Activity restrictions
== END 2019-12-20 13:29 | disposition home or self-care (01) ==
LOC: ED 11:19
DX: N20.0 Calculus of kidney (principal)
CPT/HCPCS: 99282; 99284

== ENCOUNTER 2020-03-09 18:39 | Emergency (ER) | payer OTHER ==
[2020-03-09] MEDS ORDERED: SODIUM CHLORIDE 0.9% 1,000 ML IV STA (18:59)
[2020-03-09 19:17] LABS: BASOPHILS % (AUTO) 0.5 %; EOSINOPHILS # (AUTO) 0.1 10^3/uL (0.0-0.7); HCT - HEMATOCRIT 42.6 % (37.0-47.0); HGB - HEMOGLOBIN 14.1 g/dL (12.0-16.0); LYMPHOCYTES # (AUTO) 2.6 10^3/uL (1.5-3.5); LYMPHOCYTES % (AUTO) 32.9 %; MEAN CORPUSCULAR HEMOGLOBIN 29.2 pg (27.0-31.0); MEAN CORPUSCULAR HGB CONC 33.1 g/dL (32.0-36.0); MEAN CORPUSCULAR VOLUME 88.2 fL (81.0-99.0); MEAN PLATELET VOLUME 9.9 fL (7.9-10.8); MONOCYTES # (AUTO) 0.4 10^3/uL (0.0-1.0); MONOCYTES % (AUTO) 5.3 %; NEUTROPHILS # (AUTO) 4.8 10^3/uL (1.5-6.6); PLT - PLATELET COUNT 340 10^3/uL (130-450); RED BLOOD COUNT 4.83 10^6/uL (4.20-5.40); RED CELL DISTRIBUTION WIDTH 11.6 % (12.0-15.0); WHITE BLOOD COUNT 7.9 x10^3/uL (4.8-10.8)
--- NOTE | 2020-03-09 19:23 | ED Physician Documentation ---
PD HPI NVD - Stated complaint Stated Complaint: GI ISSUES - Chief complaint Chief Complaint: Abd Pain - History obtained from History obtained from: Patient - History of Present Illness Timing - onset: How many weeks ago (2) Timing - duration: Weeks (2) Timing - details: Intermittant, Waxing and waning Pain level max: 4 Pain level now: 3 Associated symptoms: Abdominal pain. No: Fever Contributing factors: No: Sick contact, Recent antibiotics Improved by: Vomiting Recently seen: Not recently seen - Additonal information Additional information: Patient is a 24-year-old female who presents to the emergency department with 2 weeks of nausea vomiting and diarrhea intermittently. Nothing seems to make it better or worse. Occasionally has crampy diffuse abdominal pain. No fevers. No recent travel. No recent antibiotics. She is concerned about eating prime rib near [place]. She states that she is concerned about potential parasites. 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 HEENT: None Psych: None Musculoskeletal: None Derm: None - Past Surgical History Past Surgical History: No - Present Medications Home Medications: Ambulatory Orders Medication Instructions Recorded Confirmed Ondansetron Odt [Zofran] 4 mg TL Q6H PRN #10 tablet 03/09/20 - Allergies Allergies/Adverse Reactions: Allergies Allergy/AdvReac Type Severity Reaction Status Date / Time tree nut Allergy Anaphylaxis Verified 03/09/20 18:53 - Social History Does the pt smoke?: Yes Smoking Status: Never smoker Does the pt drink ETOH?: Yes Does the pt have substance abuse?: No - Immunizations Immunizations are current?: Yes - POLST Patient has POLST: No PD ED PE NORMAL - Vitals Vital signs reviewed: Yes - General General: Alert and oriented X 3, No acute distress, Well developed/nourished - HEENT HEENT: PERRL, Moist mucous membranes - Neck Neck: Supple, no meningeal sign - Cardiac Cardiac: RRR, Strong equal pulses - Respiratory Respiratory: No respiratory distress, Clear bilaterally - Abdomen Abdomen: Soft, Non tender, Non distended - Back Back: No CVA TTP - Derm Derm: Warm and dry - Extremities Extremities: No edema - Neuro Neuro: Alert and oriented X 3 - Psych Psych: Normal mood, Normal affect Results - Vitals Vitals: Vital Signs - 24 hr 03/09/20 03/09/20 03/09/20 18:53 19:35 21:19 Temperature 36.5 C Heart Rate 97 79 82 Respiratory 18 16 18 Rate Blood Pressure 118/86 H 131/87 H 119/74 O2 Saturation 98 99 97 Oxygen O2 Source Room air - Labs Labs: Laboratory Tests 03/09/20 03/09/20 03/09/20 19:05 19:05 19:30 WBC 7.9 RBC 4.83 Hgb 14.1 Hct 42.6 MCV 88.2 MCH 29.2 MCHC 33.1 RDW 11.6 L Plt Count 340 MPV 9.9 Neut # (Auto) 4.8 Lymph # (Auto) 2.6 [place] # (Auto) 0.4 Eos # (Auto) 0.1 Baso # (Auto) 0.0 Absolute Nucleated RBC 0.00 Nucleated RBC % 0.0 Sodium 139 Potassium 3.7 Chloride 104 Carbon Dioxide 26 Anion Gap 9.0 BUN 18 Creatinine 0.6 Estimated GFR (MDRD) 124 Glucose 103 H Calcium 9.8 Total Bilirubin 0.6 AST 17 ALT 17 Alkaline Phosphatase 71 Total Protein 8.7 H Albumin 5.2 Globulin 3.5 Albumin/Globulin Ratio 1.5 Lipase 20 L Urine Color YELLOW Urine Clarity CLEAR Urine pH 6.0 Ur Specific [place] 1.020 Urine Protein NEGATIVE Urine Glucose (UA) NEGATIVE Urine Ketones NEGATIVE Urine Occult Blood TRACE-INTA Urine Nitrite NEGATIVE Urine Bilirubin NEGATIVE Urine Urobilinogen 0.2 (NORMAL) Ur Leukocyte Esterase NEGATIVE Ur Microscopic Review NOT INDICATED Urine Culture Comments NOT INDICATED Urine HCG, Qual NEGATIVE PD MEDICAL DECISION MAKING - ED course Complexity details: reviewed results, re-evaluated patient, considered differential, d/w patient ED course: 24-year-old female with complaints of vomiting and diarrhea intermittently for the past 2 weeks. She states that the symptoms started after eating prime rib back [place], however that was only 1 week ago. She was observed in the emergency department for several hours, did not have any diarrhea. Stool samples were requested, but she was unable to provide this. No significant lab abnormalities. Tolerating p.o. without difficulty. Ate multiple sandwiches and pretzels. We will have her follow-up with her doctor for stool culture, ova and parasite studies and further care. Patient counseled regarding signs and symptoms for which I believe and urgent re-evaluation would be necessary. Patient with good understanding of and agreement to plan and is comfortable going home at this time This document was made in part using voice recognition software. While efforts are made to proofread this document, sound alike and grammatical errors may occur. Departure - Departure Disposition: 01 Home, Self Care Clinical Impression: Diarrhea Qualifiers: Diarrhea type: unspecified type Qualified Code(s): R19.7 - Diarrhea, unspecified Vomiting Qualifiers: Vomiting type: unspecified Vomiting Intractability: non-intractable Nausea presence: with nausea Qualified Code(s): R11.2 - Nausea with vomiting, unspecified Condition: Good Instructions: ED Diarrhea Viral Follow-Up: Ashley Mitcehll MD [Primary Care Provider] - Within 3 Days Prescriptions: Ondansetron Odt [Zofran] 4 mg TL Q6H PRN #10 tablet PRN Reason: Nausea / Vomiting Comments: Drink plenty of fluids. Follow-up with your doctor for stool ova and parasite testing. As you are unable to give a sample tonight, we cannot test her stool for ova and parasites. Return if you worsen Discharge Date/Time: 03/09/20 21:32
[2020-03-09 19:27] LABS: ALBUMIN 5.2 g/dL (3.2-5.5); ALBUMIN/GLOBULIN RATIO 1.5 (1.0-2.2); BILIRUBIN,TOTAL 0.6 mg/dL (0.2-1.0); CALCIUM 9.8 mg/dL (8.5-10.3); CREATININE 0.6 mg/dL (0.4-1.0); POTASSIUM 3.7 mmol/L (3.5-5.0); TOTAL PROTEIN 8.7 g/dL (6.7-8.2)
[2020-03-09 19:40] LABS: BILIRUBIN,URINE NEGATIVE (NEGATIVE); GLUCOSE, URINE (UA) NEGATIVE (NEGATIVE); KETONES,URINE (UA) NEGATIVE (NEGATIVE); LEUKOCYTE ESTERASE, URINE NEGATIVE (NEGATIVE); NITRITE,URINE NEGATIVE (NEGATIVE); OCCULT BLOOD,URINE TRACE-INTA (NEGATIVE); PROTEIN,URINE NEGATIVE (NEGATIVE); UROBILINOGEN,URINE 0.2 (NORMAL) E.U./dL (NORMAL)
[2020-03-09 19:44] LABS: CLARITY,URINE CLEAR (CLEAR); HCG UR QUAL NEGATIVE
[2020-03-09 21:19] VITALS: BP 119/74
== END 2020-03-09 21:32 | disposition home or self-care (01) ==
LOC: ED 18:39
DX: R19.7 Diarrhea, unspecified (principal); R11.2 Nausea with vomiting, unspecified
CPT/HCPCS: 36415; 80053; 81001; 81003; 81025; 83690; 85025; 87086; 87177; 87209; 96360; 96361; 99284